=== PATIENT | female | born 1935 | race Caucasian/White ===

== ENCOUNTER 2017-11-09 11:17 | Inpatient (IN) ==
--- NOTE | 2017-11-09 11:44 | Anesthesia Evaluation PreOp ---
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: Denies Any Significant HX Other Medical History: Renal (RENAL INSUFFICIENCY), Other (Rheumatoid Arthritis) Anesthesia History: No Prior Anesthetic Complications Alcohol Use: none Drug use: none Medications and Allergies Alendronate Sodium 70 mg PO SA 06/22/15 [History] Calcium Carbonate/Vitamin D3 [Calcium 600 + D Tablet] 1 each PO DAILY 06/22/15 [ History] Hydroxychloroquine [Plaquenuil] 200 mg PO DAILY 06/22/15 [History] Methotrexate [Otrexup] 7.5 mg PO SA 06/22/15 [History] PredniSONE 5 mg PO DAILY 06/22/15 [History] Ranitidine HCl [Zantac] 150 mg PO DAILY 06/22/15 [History] Calcium/Vit B12/FA/Pyridoxine [Folic Acid-Vit B6-Vit B12 Tab] 1 each PO DAILY [History] Losartan/Hydrochlorothiazide [Hyzaar 100-25 Tablet] 1 each PO DAILY 12/27/15 [ History] Oxycodone HCl/Acetaminophen [Percocet 5-325 mg Tablet] 1 tab PO Q6H PRN [History] 3 Allergy/AdvReac Type Severity Reaction Status Date / Time No Known Allergies Allergy Verified 11/09/17 11:38 - Meds/Allergy Pre-op Review Medications Reviewed: Yes Allergies Reviewed: Yes Anesthesia Results - Labs Laboratory Tests 11/05/17 11/05/17 15:34 15:34 Hgb 12.7 Hct 39.4 Plt Count 278 Sodium 136 Potassium 4.3 BUN 32 H Creatinine 1.20 Anesthesia Exam O2 Sat Height 1.52 m Height 1.52 m Height 1.52 m Weight 54.885 kg Weight 54.885 kg BMI 24 O2 Sat by Pulse Oximetry 96 Vital Signs Temp Pulse Resp BP Pulse Ox 98.2 F 84 18 127/77 96 11/09/17 11:39 11/09/17 11:39 11/09/17 11:39 11/09/17 11:39 11/09/17 11:39 - HEENT Mallampati: II Denture Type: Upper: Partial, Lower: Partial - 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 Patient informed and consented. Risks, benefits, and alternatives discussed. Patient wishes to proceed.
--- NOTE | 2017-11-09 11:49 | History & Physical Report ---
Date of Encounter: 11/09/17 Time of Encounter: 11:49 24 Hour HP Update - Instructions Instructions: If the History and Physical is less than 30 days old and was completed prior to A.M. admission and or procedure and has NOT been updated on calendar day of procedure please complete this update prior to performing procedure. - Update Patient reports changes in Medical Condition: No Changes in examination, assessment, or condition: No Changes in Medication: No Preop tests/diagnostics Reviewed: Yes Surgery Remains Indicated: Yes Consent for Planned Operative Procedure(s) Verified: Yes
[2017-11-09] MEDS ORDERED: CeFAZolin Syr 2,000MG/20 ML 2,000 MG/20 ML SYRINGE IVPB ONE (11:55)
[2017-11-09] MEDS ORDERED: Albuterol 2.5 MG/3 ML NEBULIZER IH ONE (11:57)
[2017-11-09] MEDS ORDERED: Ringers Solution, Lactated 1,000 ML IVC SCH ×2 (12:00→16:26)
[2017-11-09] MEDS ORDERED: ROPIVACAINE HCL/PF 0.5% 30 ML VIAL ONE (12:46)
[2017-11-09] MEDS ORDERED: Dexamethasone 4 MG/ML VIAL ONE ×2 (12:47→13:50)
[2017-11-09] MEDS ORDERED: *HR* Midazolam HCl 2 MG/2 ML VIAL ONE (12:48)
[2017-11-09] MEDS ORDERED: *HR* FentaNYL (PF) 100 MCG/2 ML VIAL ONE ×2 (12:48→13:00)
[2017-11-09] MEDS ORDERED: *HR* Propofol 200 MG/20 ML VIAL IVP ONE (13:00)
[2017-11-09] MEDS ORDERED: *HR* OxyCODONE Immed Rel 5 MG TABLET PO PRN (13:05)
[2017-11-09] MEDS ORDERED: *HR* HYDROmorphone 2 MG TABLET PO PRN (13:05)
[2017-11-09] MEDS ORDERED: Ondansetron 4 MG/2 ML VIAL IVP ONE (13:05)
[2017-11-09] MEDS ORDERED: MORPHINE SUL Oral CONC 10 MG/0.5 ML ORAL.SYG SL PRN (13:05)
--- NOTE | 2017-11-09 13:20 | Anesthesia Procedures ---
Date of Encounter: 11/09/17 Time of Encounter: 13:00 Procedures: Anesthesia - Nerve Block Procedure Date: 11/09/17 Time: 13:00 Allergies/Adv Reactions: NKDA Pre-op Diagnosis: Left shoulder proximal humerus fracture Surgical Procedure: Left proximal humerus ORIF Checklist: Correct Patient Identifier, Correct procedure, History checked Correct side: Left Blood Thinner: No Monitor Applied: EKG, BP, Pulse Oximetry Supplemental Oxygen via Nasal Cannula (L/min): 2 Sedation: Versed (mg): 1 Sedation: Fentanyl (mcg): 50 Indication: Post Op Analgesia Pre-op Neuro Deficits: No Block Type: Interscalene Catheter placed: No Sterile Technique: Yes Ultrasound used: Yes Anatomy identified: Yes Visual spread of Local: Yes Neuro Stimulation: No Blood on Needle Aspiration: No Smooth Injection of Local: Yes Prep: Chlorhexadine Needle: 22 x 50 mm Stimuplex Local: Ropivacaine (0.5% ) Volume (cc): 25ml Number of Attempts: 1 Complications: None/effective block Vitals: Vital Signs Temperature 98.2 F 11/09/17 11:39 Pulse Rate 84 11/09/17 11:39 Respiratory Rate 18 11/09/17 11:39 Blood Pressure 127/77 11/09/17 11:39 O2 Sat by Pulse Oximetry 96 11/09/17 11:39 Temperature 98.2 F 11/09/17 11:39 Pulse Rate 84 11/09/17 11:39 Respiratory Rate 18 11/09/17 11:39 Blood Pressure 127/77 11/09/17 11:39 O2 Sat by Pulse Oximetry 96 11/09/17 11:39
[2017-11-09] MEDS ORDERED: EPHEDrine 50 MG/ML VIAL ONE (13:38)
[2017-11-09] MEDS ORDERED: *HR* PHENYLEPHRINE 1,000 MCG/10 ML SYRINGE IVP ONE (13:49)
[2017-11-09] MEDS ORDERED: Ondansetron 4 MG/2 ML VIAL ONE (13:50)
--- NOTE | 2017-11-09 16:04 | Orthopedic Operative Note ---
Date of procedure: 11/09/17 Pre-op diagnosis: Left four part proximal humerus fracture Post-op diagnosis: same Procedure: 1. Left reverse total shoulder arthroplasty 2. Left ORIF greater tuberosity 3. Left open biceps tenodesis Indications: This is a 82 yo F with history of rheumatoid arthritis who had a fall and sustained a displaced four part left proximal humerus fracture. Operative and non-operative treatment options were discussed with the patient, and the patient has elected for a left reverse shoulder replacement with tuberosity repair. The risks and benefits of the procedure were fully explained to the patient. These risks include, but are not limited to, the risk of infection, neurovascular injury, continued pain and stiffness of the shoulder , need for further surgery, DVT, PE, loss of limb and loss of life. The patient did understand all of these risks and wishes to proceed. Informed consent was then obtained. Operative procedure: The patient was brought back to the OR suite by the anesthesia staff. The patient was then placed supine on the operating table and all bony prominences were padded. The anesthesiologist then performed successful general anesthetic for the remainder of the case. The head, neck and airway were secured and protected by anesthesia. The bed was elevated about 30 degrees. The right upper extremity was then prepped and draped in the normal sterile orthopedic fashion and placed in the Trimano arm palomo. Preoperative antibiotics were then given prior to incision. A timeout was performed confirming the correct patient, site and side, procedure to be performed and any allergies. All were in agree and we did proceed. A standard deltopectoral approach was performed. We dissected down through the skin coagulating any bleeders were encountered. The cephalic vein was then identified and taken laterally with the deltoid. Adhesions were cleared from underneath the deltoid and a brown retractor was placed. The interval between the deltoid and pectoralis was then developed and kolbel retractor was placed. A Darrach retractor was then placed under the acromion. The biceps tendon was exposed and identified, and then released proximally into the rotator interval. Soft tissue tenodesis of the remaining biceps was then performed. The lateral border of the conjoined tendon was then identified and the fracture of the lesser tuberosity, humeral head, and greater tuberosity fragments were identified. The lesser tuberosity fragment was off of the humeral shaft, this was retracted, exposing the humeral head. The humeral head was removed using 2 darrachs. The greater tuberosity was fragmented into multiple pieces. 4 niceloop fiberwire sutures were then placed around the greater tuberosity for later repair. Any bony debris was removed from the proximal humerus. Attention was then turned to the glenoid. The humerus was subluxed posteriorly and retractors were placed on the anterior and posterior aspects of the glenoid. A 360 degree release of the subscapularis was performed, and the axillary nerve was palpated and protected throughout the case. Labral debridement was then performed. The glenoid was arthritic with bone erosions. A central guide pin was placed in the appropriate position on the glenoid. The central drill hole was made and the glenoid was then reamed in accordance with the [employer] reverse system. The patient did have soft glenoid bone due to her RA, but the baseplate was able to be screwed in place securely. The remaining peripheral drill holes were drilled and the appropriate length locking screws were placed. The glenosphere was then inserted and locked in to place with the locking screw. Attention was turned back to the humerus. The humerus was subluxed back anteriorly and the humerus was reamed and broached up to a size 3. A trial humeral stem and cup were placed. Trial reduction was then performed to make sure we could reduce the humerus. The size 3 ascend flex stem was then press fit in place, using the greater tuberosity as a guide to our humeral height. We retrialed the humeral cup and tray until we had adequate stability. We also ensured the greater tuberosity could be reduced to the stem. The final size +6 humeral cup was placed and the shoulder reduced. The niceloops around the greater tuberosity was then passed around the stem. The greater tuberosity was then held in place and tied back on to the humeral shaft. The shoulder was then taken through ROM to ensure stability of the prosthesis and tuberosity repair. The wound was then copiously irrigated, the deltopectoral interval was tagged with 2-0 surgilon, and the incision was closed with 2-0 stratafix deep and a running 3-0 stratafix subcuticular. Sterile dressing was placed, the arm was placed in a sling and the patient was taken to the PACU in stable condition. There were no complications during the case. Post op plan: Admitted post op. We will hold shoulder motion due to the patients poor bone quality, ok for hand, wrist and elbow motion. Implants: Tornier aequalis ascend flex 3b PTC Standard stem +0 centered tray, 36+6 mm flex poly Aequalis reverse threaded post baseplate, 25x25 mm 36x25 mm +4 lateralized glenosphere Anesthesia: GETA, regional Surgeon: Fred Sung Was there an assistant sales director present: No Estimated blood loss (cc): 100 Condition: stable Disposition: PACU
--- NOTE | 2017-11-09 16:05 | Anesthesia Evaluation Post Op ---
Date of Encounter: 11/09/17 Time of Encounter: 16:04 - Vital Signs Vital Signs: vss - Lungs Lungs: Clear Ascult./Percussion - Airway Airway: Non-obstructed - Mental Status Mental Status: Asleep with brisk response to light stimulation - Pain Pain Scale used: Norma (Faces) - Nausea Vomiting Nausea Vomiting: Not Present - Hydration Hydration: Ice chips - Discharge PostOp Status: Transfer Patient to floor
[2017-11-09] MEDS ORDERED: Ondansetron 4 MG/2 ML VIAL IVP PRN (16:26)
[2017-11-09] MEDS ORDERED: Sennosides 8.6 MG TABLET PO PRN (16:26)
[2017-11-09] MEDS ORDERED: Ketorolac 15 MG/ML VIAL IVP PRN (16:26)
[2017-11-09] MEDS ORDERED: *HR* HYDROcodone/Acet 5/325 mg TABLET PO PRN (16:26)
[2017-11-09] MEDS ORDERED: Temazepam 15 MG CAPSULE PO PRN (16:26)
[2017-11-09] MEDS ORDERED: MOM Conc 10 ML UD.LIQ PO PRN (16:26)
[2017-11-09] MEDS ORDERED: Acetaminophen 325 MG TABLET PO PRN (16:26)
[2017-11-09] MEDS ORDERED: Naloxone 0.4 MG/ML INJ IVP PRN (16:26)
--- NOTE | 2017-11-09 16:52 | Electrocardiograph Report ---
[place] [address] Test Date: 2017-11-05 Pat Name: Tamika Arriaga Department: 107 Room: [facility] Gender: F Family Practice Physician Assistant: AME : [id number] Requested By: Fred Sung Order Number: [id number] Reading MD: Manju Espinosa Measurements Intervals Berkley Rate: 92 P: 20 ID: [id number] QRS: -12 QRSD: 82 T: -9 QT: 334 QTc: 384 Interpretive Statements SINUS RHYTHM MODERATE VOLTAGE CRITERIA FOR LVH, CONSIDER NORMAL VARIANT Electronically Signed On 11-09-2017 16:50:23 EDT by Manju Espinosa
[2017-11-09] MEDS: CeFAZolin Premix DUPLEX 2,000 MG/50 ML BAG IVPB SCH ×2 (17:42→23:58)
[2017-11-10 06:32] LABS: Hematocrit 30.4 % (35.3-44.9)
[2017-11-10 06:36] LABS: Hemoglobin 10.2 g/dL (11.5-15.4)
--- NOTE | 2017-11-10 07:51 | Physician Discharge Referral ---
Home Health/Hosp Referral Info Transfer to: Home Health - Respiratory Orders Smoking Cessation: Smoking cessation has been advised. For more information, call the [place] Tobacco Quit Line at 0-340-KUOG-NOW. - Diet/Nutrition Diet/Nutrition Orders: Regular - Activity Activity Orders: Up ad mane - Services Needed Following services are medically necessary services: Nursing, Physical Therapy, Occupational Therapy Other Treatments: POST-OPERATIVE INSTRUCTIONS OPEN SHOULDER SURGERY Your recovery after shoulder surgery can take 6-9 months (and sometimes up to a year) to fully recover. It takes 12 weeks for the repair to fully heal, so it is very important to follow all precautions after surgery as directed. These instructions are intended to help you control swelling and pain, and to allow your shoulder and repaired tissues to heal. These instructions are a general guideline, because no patient or procedure is the same. If needed, your surgeon will give you further specific instructions. SLING You are required to wear your sling at all times (including sleeping) until your follow up appointment. This is necessary to protect your repair. You may remove it to work on your hand, wrist, and elbow exercises, for getting dressed , and for hygiene. Otherwise, it should remain on at all times. ICE It is recommended to ice your shoulder for 20 minutes per hour using an ice pack, Cryo Cuff if provided, or a bag of frozen peas. Ice can be especially helpful for the first several days after surgery. It can then be used as needed for pain and swelling. PAIN BLOCK/PAIN CATHETER The pain block/catheter is intended for pain relief and can last for up to 48 hours. During this time, you will not experience pain and will not be able to move your hand and fingers. It will give you the sensation of your arm being paralyzed. THIS IS TEMPORARY UNTIL THE BLOCK WEARS OFF. It is recommended that you start your pain medication even though you are getting pain relief from the block. It is more difficult to control the pain once the block wears off, then to keep a constant level of the pain medication in your system. For further questions regarding the pain catheter or block, please refer to the pain pump handout given to you from surgery or contact the anesthesia department as directed in the handout. MEDICATIONS You should resume all of your normal medications after shoulder surgery. If you are on blood thinners, these should be discussed with our team to decide on a date to resume them (typically the day after surgery). You will be given prescriptions for pain medications: o Fill the pain medications immediately and begin taking the medications before your nerve block wears off. You are encouraged to take the pain medications as directed on the prescription, and on a regular schedule for the first 3-4 days after surgery. o Do not let the pain get "ahead" of the pain medications since then it will be very difficult for you to get adequate pain control. o Even with the nerve block from surgery, it is recommended that you start on the pain medications after surgery to avoid the block wearing off without having pain medications in your system. o As the pain decreases, you may decrease the pain medication and switch to extra strength Tylenol if needed. o Avoid driving and consuming alcohol while taking pain medication. o Common side effects of pain medication are nausea, drowsiness, and constipation. Consider taking medication with food, and also consider using an [id number] stool softener. DRESSING You may shower and get your incision wet 5 days after surgery, as long as there is no drainage coming from the incision. If the dressing is leaking, remove it and apply a clean, dry gauze to your shoulder. Avoid letting the shower stream hit the incisions directly until the sutures are removed. DO NOT scrub incisions or soak under water (bathtub, swimming pool or hot tub etc.) Pat the shoulder dry and then re-apply the dressing. If you have drainage more than 5 days after surgery, please contact our office for advice. SLEEPING You may find it more comfortable to sleep in a semi-reclined position (ie. recliner type chair or propped up on pillows) following shoulder surgery. You may return to sleeping in your bed whenever it feels comfortable to do so. EXERCISES You may come out of your sling 3-4 times/day to move your elbow, wrist, and hand and fingers. Remember no active motion of the shoulder (moving the arm without assistance from someone else) until follow up. We will make specific recommendations about physical therapy will be determined at your first postoperative appointment. FOLLOW UP APPOINTMENTS Your first follow up appointment is generally 10-14 days after surgery. Please refer to your preoperative packet for the date and time or contact the office after surgery to confirm this appointment. o Please wait until after first follow up appointment for physical therapy instructions Wound care, pain management, and a review of your surgical procedure will be discussed at your first post-operative appointment Additional appointments are scheduled according to the type of surgery that you had and how you are progressing. PRECAUTIONS After anesthesia, rest for 24 hours. General anesthesia may cause a sore throat, jaw discomfort or muscle aches. These symptoms can last for one or two days. Do not drive, drink alcoholic beverages or make any important or legal decisions during this time. Avoid placing arm behind back (tucking in shirt, putting on belt), and do not lean on affected arm or use arm to push up from a seated or laying position. A good general rule is to keep your arm where you can see it. Keep your first few meals after surgery light and drink plenty of fluids, and some people are nauseas after surgery. Smoking increases your risk of infection and can delay healing times. If you smoke, you are encouraged to quit, cut back or at least quit smoking during the post-operative period. Pain medications are important for the first few days after surgery to treat postoperative pain. Addiction, tolerance, and side effects are a big concern. Decrease the pain medications as soon as you can. This is typically after the first few days. Most patients require narcotic pain medications only for the first few weeks after surgery (even large procedures). Prolonged use increases the risk of problems with these medications. NOTIFY THE OFFICE IMMEDIATELY, IF YOU DEVELOP ANY OF THE FOLLOWING: Increased redness or swelling over the incision area Incision area is warm or hot to touch Incision has foul smelling drainage Relentless pain, nausea, vomiting, bleeding or drainage Severe calf pain or chest pain You develop a fever greater than 101.4 more than 48 hours after surgery If you having an emergency that requires immediate attention go to the nearest emergency room or call 911. Please contact the office with any other questions or concerns that you may have regarding your surgery. - Transfer Medications Home Medications: Alendronate Sodium 70 mg PO SA 06/22/15 [History] Calcium Carbonate/Vitamin D3 [Calcium 600 + D Tablet] 1 each PO DAILY 06/22/15 [ History] Hydroxychloroquine [Plaquenuil] 200 mg PO DAILY 06/22/15 [History] Methotrexate [Otrexup] 7.5 mg PO SA 06/22/15 [History] PredniSONE 5 mg PO DAILY 06/22/15 [History] Ranitidine HCl [Zantac] 150 mg PO DAILY 06/22/15 [History] Calcium/Vit B12/FA/Pyridoxine [Folic Acid-Vit B6-Vit B12 Tab] 1 each PO DAILY [History] Losartan/Hydrochlorothiazide [Hyzaar 100-25 Tablet] 1 each PO DAILY 12/27/15 [ History] Oxycodone HCl/Acetaminophen [Percocet 5-325 mg Tablet] 1 tab PO Q6H PRN [History] Allergies/Adverse Reactions: 3 Allergy/AdvReac Type Severity Reaction Status Date / Time No Known Allergies Allergy Verified 11/09/17 11:38 Certification: Further, I certify that my clinical findings support that this patient is homebound (i.e. absences from home require considerable and taxing effort and are for medical reasons or mandaeism services or infrequently or short duration when for other reasons) because: Homebound Reason: Patient requires assistance of a person or device to safely leave home Attestation: My signature below is to certify that this patient is under my care and that I, or nurse practitioner, or a physician's visitor services assistant working with me, has a face-to -face encounter with this patient.
--- NOTE | 2017-11-10 08:37 | Orthopedics Progress Note ---
Date of Encounter: 11/10/17 Time of Encounter: 08:08 Subjective Interval history: Doing ok first day post op. Block has worn off, left shoulder pain is present. Denies N/T. No f/c/ns. AFVSS Hgb 10.2 GEN: NAD, AAOx3 LUE: Dress c/d/i DNVI ax/m/r/u +AIN/PIN/U POD#1 s/p L shoulder reverse for fracture -PT for hand, wrist and elbow motion only - no shoulder motion -PO pain control -D/c when passes PT and pain is controlled Objective Vital signs: Vital Signs Temp Pulse Resp BP Pulse Ox 11/10/17 06:56 97.9 F 77 16 115/66 96 11/10/17 03:46 97.4 F L 85 14 127/67 97 11/09/17 23:02 97.5 F L 83 16 96/60 92 11/09/17 18:43 97.6 F 100 16 104/67 96 11/09/17 17:30 97.5 F L 93 15 100/60 95 11/09/17 17:00 97.5 F L 105 16 95/63 98 11/09/17 16:28 97.5 F L 90 16 134/79 98 11/09/17 16:12 97.1 F L 89 16 125/75 99 11/09/17 16:02 87 16 142/71 99 11/09/17 15:52 86 16 133/61 100 11/09/17 15:42 97.6 F 84 16 125/64 100 11/09/17 13:10 82 18 109/59 98 11/09/17 12:56 81 18 125/84 98 11/09/17 11:39 98.2 F 84 18 127/77 96 Intake and Output 11/09/17 11/10/17 11/10/17 23:59 07:59 15:59 Intake Total 200 / 200 150 / 150 Output Total 600 / 600 300 / 300 Balance -400 / -400 -150 / -150 Intake: IV Fluids 50 / 50 Ancef Premix DUPLEX 2,000 mg In 50 / 50 50 ml @ 100 mls/hr IVPB Q8HR SARAH Rx#:[id number] Oral 150 / 150 150 / 150 Output: Urine 600 / 600 300 / 300 Other: # Voids 1 Weight 58.2 kg Patient Weight 11/10/17 23:59 Weight 58.2 kg - Labs CBC & BMP: 11/10/17 06:05 Labs: Abnormal lab results Hgb 10.2 g/dL (11.5-15.4) L D 11/10/17 06:05 Hct 30.4 % (35.3-44.9) L 11/10/17 06:05 - VTE Documentation of Mechanical Device: Venous foot pump, device Consult Discharge Plan - Plan Additional Instructions: POST-OPERATIVE INSTRUCTIONS OPEN SHOULDER SURGERY Your recovery after shoulder surgery can take 6-9 months (and sometimes up to a year) to fully recover. It takes 12 weeks for the repair to fully heal, so it is very important to follow all precautions after surgery as directed. These instructions are intended to help you control swelling and pain, and to allow your shoulder and repaired tissues to heal. These instructions are a general guideline, because no patient or procedure is the same. If needed, your surgeon will give you further specific instructions. SLING You are required to wear your sling at all times (including sleeping) until your follow up appointment. This is necessary to protect your repair. You may remove it to work on your hand, wrist, and elbow exercises, for getting dressed , and for hygiene. Otherwise, it should remain on at all times. ICE It is recommended to ice your shoulder for 20 minutes per hour using an ice pack, Cryo Cuff if provided, or a bag of frozen peas. Ice can be especially helpful for the first several days after surgery. It can then be used as needed for pain and swelling. PAIN BLOCK/PAIN CATHETER The pain block/catheter is intended for pain relief and can last for up to 48 hours. During this time, you will not experience pain and will not be able to move your hand and fingers. It will give you the sensation of your arm being paralyzed. THIS IS TEMPORARY UNTIL THE BLOCK WEARS OFF. It is recommended that you start your pain medication even though you are getting pain relief from the block. It is more difficult to control the pain once the block wears off, then to keep a constant level of the pain medication in your system. For further questions regarding the pain catheter or block, please refer to the pain pump handout given to you from surgery or contact the anesthesia department as directed in the handout. MEDICATIONS You should resume all of your normal medications after shoulder surgery. If you are on blood thinners, these should be discussed with our team to decide on a date to resume them (typically the day after surgery). You will be given prescriptions for pain medications: o Fill the pain medications immediately and begin taking the medications before your nerve block wears off. You are encouraged to take the pain medications as directed on the prescription, and on a regular schedule for the first 3-4 days after surgery. o Do not let the pain get "ahead" of the pain medications since then it will be very difficult for you to get adequate pain control. o Even with the nerve block from surgery, it is recommended that you start on the pain medications after surgery to avoid the block wearing off without having pain medications in your system. o As the pain decreases, you may decrease the pain medication and switch to extra strength Tylenol if needed. o Avoid driving and consuming alcohol while taking pain medication. o Common side effects of pain medication are nausea, drowsiness, and constipation. Consider taking medication with food, and also consider using an [id number] stool softener. DRESSING You may shower and get your incision wet 5 days after surgery, as long as there is no drainage coming from the incision. If the dressing is leaking, remove it and apply a clean, dry gauze to your shoulder. Avoid letting the shower stream hit the incisions directly until the sutures are removed. DO NOT scrub incisions or soak under water (bathtub, swimming pool or hot tub etc.) Pat the shoulder dry and then re-apply the dressing. If you have drainage more than 5 days after surgery, please contact our office for advice. SLEEPING You may find it more comfortable to sleep in a semi-reclined position (ie. recliner type chair or propped up on pillows) following shoulder surgery. You may return to sleeping in your bed whenever it feels comfortable to do so. EXERCISES You may come out of your sling 3-4 times/day to move your elbow, wrist, and hand and fingers. Remember no active motion of the shoulder (moving the arm without assistance from someone else) until follow up. We will make specific recommendations about physical therapy will be determined at your first postoperative appointment. FOLLOW UP APPOINTMENTS Your first follow up appointment is generally 10-14 days after surgery. Please refer to your preoperative packet for the date and time or contact the office after surgery to confirm this appointment. o Please wait until after first follow up appointment for physical therapy instructions Wound care, pain management, and a review of your surgical procedure will be discussed at your first post-operative appointment Additional appointments are scheduled according to the type of surgery that you had and how you are progressing. PRECAUTIONS After anesthesia, rest for 24 hours. General anesthesia may cause a sore throat, jaw discomfort or muscle aches. These symptoms can last for one or two days. Do not drive, drink alcoholic beverages or make any important or legal decisions during this time. Avoid placing arm behind back (tucking in shirt, putting on belt), and do not lean on affected arm or use arm to push up from a seated or laying position. A good general rule is to keep your arm where you can see it. Keep your first few meals after surgery light and drink plenty of fluids, and some people are nauseas after surgery. Smoking increases your risk of infection and can delay healing times. If you smoke, you are encouraged to quit, cut back or at least quit smoking during the post-operative period. Pain medications are important for the first few days after surgery to treat postoperative pain. Addiction, tolerance, and side effects are a big concern. Decrease the pain medications as soon as you can. This is typically after the first few days. Most patients require narcotic pain medications only for the first few weeks after surgery (even large procedures). Prolonged use increases the risk of problems with these medications. NOTIFY THE OFFICE IMMEDIATELY, IF YOU DEVELOP ANY OF THE FOLLOWING: Increased redness or swelling over the incision area Incision area is warm or hot to touch Incision has foul smelling drainage Relentless pain, nausea, vomiting, bleeding or drainage Severe calf pain or chest pain You develop a fever greater than 101.4 more than 48 hours after surgery If you having an emergency that requires immediate attention go to the nearest emergency room or call 911. Please contact the office with any other questions or concerns that you may have regarding your surgery. Referrals: Obie Diaz MD [Primary Care Provider] -
[2017-11-10] MEDS ORDERED: predniSONE 5 MG TABLET PO SCH (09:00)
[2017-11-10] MEDS ORDERED: NON-FORMULARY MEDICATION 1 EACH EACH (Calcium Carbonate/Vitamin D3 [Calcium 600 + D Tablet PO SCH (09:00)
[2017-11-10] MEDS ORDERED: Losartan/HCTZ 50-12.5 TABLET PO SCH (09:00)
[2017-11-10] MEDS ORDERED: Multivit/Ca/Min/Fe/FA 1 TAB TABLET PO SCH (09:00)
[2017-11-10] MEDS ORDERED: Famotidine 20 MG TABLET PO SCH (09:00)
[2017-11-10] MEDS ORDERED: Cholecalciferol (D-3) 1,000 UNIT TABLET PO SCH (09:00)
--- NOTE | 2017-11-10 11:25 | Discharge Summary ---
Orders not resulted at time of discharge: Pending orders 11/11/17 04:00 Hemoglobin and Hematocrit [HEME] AM 0400 Date of Encounter: 11/10/17 Time of Encounter: 11:23 - Discharge Diagnosis (1) Humerus surgical neck fracture Priority: Primary Status: Acute Qualifiers: Encounter type: initial encounter Fracture type: closed Fracture morphology: unspecified fracture morphology Fracture alignment: displaced Laterality: left Qualified Code(s): S42.212A - Unspecified displaced fracture of surgical neck of left humerus, initial encounter for closed fracture - Hospital Course Hospital course: Ms. Arriaga is a 82 year old female admitted overnight for pain control following a reverse total shoulder arthroplasty for a four part proximal humerus fracture. She tolerated surgery with no issues. She was able to work with physical therapy for hand, wrist and elbow motion and then was discharged POD#1 after being cleared by therapy and having her pain controlled. - Time Spent with Patient Total time spent providing and/or coordinating discharge services: - Discharge Medications Home Medications: Alendronate Sodium 70 mg PO SA 06/22/15 [History] Calcium Carbonate/Vitamin D3 [Calcium 600 + D Tablet] 1 each PO DAILY 06/22/15 [ History] Hydroxychloroquine [Plaquenuil] 200 mg PO DAILY 06/22/15 [History] Methotrexate [Otrexup] 7.5 mg PO SA 06/22/15 [History] PredniSONE 5 mg PO DAILY 06/22/15 [History] Ranitidine HCl [Zantac] 150 mg PO DAILY 06/22/15 [History] Calcium/Vit B12/FA/Pyridoxine [Folic Acid-Vit B6-Vit B12 Tab] 1 each PO DAILY [History] Losartan/Hydrochlorothiazide [Hyzaar 100-25 Tablet] 1 each PO DAILY 12/27/15 [ History] Oxycodone HCl/Acetaminophen [Percocet 5-325 mg Tablet] 1 tab PO Q6H PRN [History] Allergies/Adverse Reactions: 3 Allergy/AdvReac Type Severity Reaction Status Date / Time No Known Allergies Allergy Verified 11/09/17 11:38 Date of admission: 11/09/17 16:27 Primary care physician: Obie Diaz MD Consults: 11/09/17 16:26 Consult to Occupational Therapy [CONS] Routine Comment: post shoulder surgery Reason for Consult: post shoulder surgery Does patient have active BEDREST order?: No Is patient medically & hemodynamically stable?: Yes Consult to Orthopedic Navigator [CONS] [CONS] Routine Consult to Physical Therapy [CONS] Routine Comment: post shoulder surgery Reason for Consult: post shoulder surgery Does patient have active BEDREST order?: No Is patient medically & hemodynamically stable?: Yes RT Post Op Consult [CONS] Routine 11/09/17 16:32 Consult to [employer] [CONS] Routine Reason for SW Consult: DISCHARGE PLANNING - VTE Documentation of Mechanical Device: Venous foot pump, device Labs on day of discharge: Labs from last 24 hours 11/10/17 06:05 Hgb 10.2 L D Hct 30.4 L - Impressions ITS Impressions Shoulder X-Ray 11/09/17 15:33 IMPRESSION: 1. Left shoulder arthroplasty. Hardware is intact. Small fracture fragments adjacent to the proximal humerus -- likely residual fragment from initial fracture. 2. Pulmonary findings in the left mid lung are stable. D/ / 11/09/2017 16:06:42 Casey Massey MD / [facility] Interpreting Provider: Casey Massey MD Shoulder X-Ray 11/10/17 07:48 IMPRESSION: 1. Unchanged expected findings of left reverse shoulder arthroplasty with no evident complication. Unchanged adjacent bony fragments along the superolateral humeral stem may be related to the initial fracture or surgery. 2. 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 3. Bony demineralization. 4. Left basilar airspace opacity, most likely atelectasis. D/ / Mack Larsen MD / Mack Larsen MD Interpreting Provider: Mack Larsen MD - Patient Status Disposition: Home Health Service Condition: Fair Functional capacity at discharge: independent ambulation Overall status at discharge: patient is progressing back to baseline - Discharge Instructions Follow Up With: Obie Diaz MD [Primary Care Provider] - Additional Instructions: POST-OPERATIVE INSTRUCTIONS OPEN SHOULDER SURGERY Your recovery after shoulder surgery can take 6-9 months (and sometimes up to a year) to fully recover. It takes 12 weeks for the repair to fully heal, so it is very important to follow all precautions after surgery as directed. These instructions are intended to help you control swelling and pain, and to allow your shoulder and repaired tissues to heal. These instructions are a general guideline, because no patient or procedure is the same. If needed, your surgeon will give you further specific instructions. SLING You are required to wear your sling at all times (including sleeping) until your follow up appointment. This is necessary to protect your repair. You may remove it to work on your hand, wrist, and elbow exercises, for getting dressed , and for hygiene. Otherwise, it should remain on at all times. ICE It is recommended to ice your shoulder for 20 minutes per hour using an ice pack, Cryo Cuff if provided, or a bag of frozen peas. Ice can be especially helpful for the first several days after surgery. It can then be used as needed for pain and swelling. PAIN BLOCK/PAIN CATHETER The pain block/catheter is intended for pain relief and can last for up to 48 hours. During this time, you will not experience pain and will not be able to move your hand and fingers. It will give you the sensation of your arm being paralyzed. THIS IS TEMPORARY UNTIL THE BLOCK WEARS OFF. It is recommended that you start your pain medication even though you are getting pain relief from the block. It is more difficult to control the pain once the block wears off, then to keep a constant level of the pain medication in your system. For further questions regarding the pain catheter or block, please refer to the pain pump handout given to you from surgery or contact the anesthesia department as directed in the handout. MEDICATIONS You should resume all of your normal medications after shoulder surgery. If you are on blood thinners, these should be discussed with our team to decide on a date to resume them (typically the day after surgery). You will be given prescriptions for pain medications: o Fill the pain medications immediately and begin taking the medications before your nerve block wears off. You are encouraged to take the pain medications as directed on the prescription, and on a regular schedule for the first 3-4 days after surgery. o Do not let the pain get "ahead" of the pain medications since then it will be very difficult for you to get adequate pain control. o Even with the nerve block from surgery, it is recommended that you start on the pain medications after surgery to avoid the block wearing off without having pain medications in your system. o As the pain decreases, you may decrease the pain medication and switch to extra strength Tylenol if needed. o Avoid driving and consuming alcohol while taking pain medication. o Common side effects of pain medication are nausea, drowsiness, and constipation. Consider taking medication with food, and also consider using an [id number] stool softener. DRESSING You may shower and get your incision wet 5 days after surgery, as long as there is no drainage coming from the incision. If the dressing is leaking, remove it and apply a clean, dry gauze to your shoulder. Avoid letting the shower stream hit the incisions directly until the sutures are removed. DO NOT scrub incisions or soak under water (bathtub, swimming pool or hot tub etc.) Pat the shoulder dry and then re-apply the dressing. If you have drainage more than 5 days after surgery, please contact our office for advice. SLEEPING You may find it more comfortable to sleep in a semi-reclined position (ie. recliner type chair or propped up on pillows) following shoulder surgery. You may return to sleeping in your bed whenever it feels comfortable to do so. EXERCISES You may come out of your sling 3-4 times/day to move your elbow, wrist, and hand and fingers. Remember no active motion of the shoulder (moving the arm without assistance from someone else) until follow up. We will make specific recommendations about physical therapy will be determined at your first postoperative appointment. FOLLOW UP APPOINTMENTS Your first follow up appointment is generally 10-14 days after surgery. Please refer to your preoperative packet for the date and time or contact the office after surgery to confirm this appointment. o Please wait until after first follow up appointment for physical therapy instructions Wound care, pain management, and a review of your surgical procedure will be discussed at your first post-operative appointment Additional appointments are scheduled according to the type of surgery that you had and how you are progressing. PRECAUTIONS After anesthesia, rest for 24 hours. General anesthesia may cause a sore throat, jaw discomfort or muscle aches. These symptoms can last for one or two days. Do not drive, drink alcoholic beverages or make any important or legal decisions during this time. Avoid placing arm behind back (tucking in shirt, putting on belt), and do not lean on affected arm or use arm to push up from a seated or laying position. A good general rule is to keep your arm where you can see it. Keep your first few meals after surgery light and drink plenty of fluids, and some people are nauseas after surgery. Smoking increases your risk of infection and can delay healing times. If you smoke, you are encouraged to quit, cut back or at least quit smoking during the post-operative period. Pain medications are important for the first few days after surgery to treat postoperative pain. Addiction, tolerance, and side effects are a big concern. Decrease the pain medications as soon as you can. This is typically after the first few days. Most patients require narcotic pain medications only for the first few weeks after surgery (even large procedures). Prolonged use increases the risk of problems with these medications. NOTIFY THE OFFICE IMMEDIATELY, IF YOU DEVELOP ANY OF THE FOLLOWING: Increased redness or swelling over the incision area Incision area is warm or hot to touch Incision has foul smelling drainage Relentless pain, nausea, vomiting, bleeding or drainage Severe calf pain or chest pain You develop a fever greater than 101.4 more than 48 hours after surgery If you having an emergency that requires immediate attention go to the nearest emergency room or call 911. Please contact the office with any other questions or concerns that you may have regarding your surgery. - Diet and Activity Activity: as per physical therapy Diet: advance to your usual diet
[2017-11-10 12:32] VITALS: BP 114/69
[2017-11-10] MEDS ORDERED: Aspirin Enteric Coated 325 MG Tablet PO SCH (15:38)
[2017-11-13] MEDS ORDERED: *HR* Methotrexate 2.5 MG TABLET PO SCH (15:30)
[2017-11-13] MEDS ORDERED: NON-FORMULARY MEDICATION 1 EACH EACH (Alendronate Sodium [Alendronate Sodium] 70 MG) PO SCH (15:41)
== END 2017-11-10 13:41 | disposition home health service (06) | DRG 483 ==
LOC: SAMDAY 11:17 → 3NENU 16:27
PROVIDERS: ADMIT Orthopaedic Surgery Sports Medicine; ATTEND Orthopaedic Surgery Sports Medicine

== ENCOUNTER 2017-11-18 14:59 | Inpatient (IN) ==
[2017-11-18] MEDS ORDERED: Naloxone 0.4 MG/ML INJ IVP PRN (17:06)
[2017-11-18] MEDS: *HR* OxyCODONE Immed Rel 5 MG TABLET PO PRN (17:21)
--- NOTE | 2017-11-18 18:00 | Internal Med History&Physical ---
Date of Encounter: 11/18/17 Time of Encounter: 17:59 Assessment and Plan (1) Closed left femoral fracture Current visit: Yes Status: Acute Patient presenting with closed left femoral fracture of the neck. We will consult orthopedics for management. She had recently undergone left shoulder arthroplasty. Tolerated surgery well. At this time I do not see any need for further workup as she seems to be in her usual health. Will get EKG and chest x -ray for preop evaluation. Patient at intermediate risk for complications from surgery due to her age and rheumatoid arthritis. Qualifiers: Encounter type: initial encounter Femur location: neck Qualified Code(s) : S72.002A - Fracture of unspecified part of neck of left femur, initial encounter for closed fracture (2) Rheumatoid arthritis Current visit: Yes Status: Chronic Patient takes prednisone, plaquenil and methotrexate. We will continue these medications. Qualifiers: Rheumatoid arthritis location: multiple sites Rheumatoid factor presence: unspecified presence Qualified Code(s): M06.9 - Rheumatoid arthritis, unspecified (3) Essential hypertension Current visit: Yes Status: Chronic Blood pressure was elevated when she came in likely due to pain. It has improved since then. Will continue home medications and monitor blood pressure. (4) DVT prophylaxis Current visit: Yes Status: Acute With subcutaneous heparin Internal Medicine - H&P: HPI Chief complaint: Left hip pain Admitted From: Emergency Dept Plans for Post Hospital Care: [facility] History of present illness: Ms. Arriaga is a 82 year old female patient with a history of rheumatoid arthritis who was leaving her home for a follow-up appointment with orthopedics follow-up after recent left shoulder arthroplasty for a pop in her leg and was brought into the ER for evaluation. She describes intense pain in her left hip region. She denies any fall. She denies any shortness of breath cough or chest pain. She had developed pneumonia earlier this year and has recovered from it. She denies any orthopnea, palpitations or lightheadedness. No pedal edema. Presently her pain in the leg is well controlled after she received pain medications. Past Med Surg Social Fam HX - Past Medical History Attestation: Yes The following information was validated with the patient. Source: patient Medical history: hypertension, osteoporosis, RA Psychiatric history: no psych history - Past Surgical History Surgical History: , hysterectomy - Social History Smoking Status: Never smoker Smokeless Tobacco Status: No Alcohol use: none Drug use: none - Family History Mother Hx Family Cardiac Disorders: Yes (Hypertension) Hx Family Endocrine Disorder: Yes Internal Medicine - H&P: Meds Alendronate Sodium 70 mg PO SA 06/22/15 [History] Calcium Carbonate/Vitamin D3 [Calcium 600 + D Tablet] 1 each PO DAILY 06/22/15 [ History] Hydroxychloroquine [Plaquenuil] 200 mg PO DAILY 06/22/15 [History] Methotrexate [Otrexup] 7.5 mg PO SA 06/22/15 [History] PredniSONE 5 mg PO DAILY 06/22/15 [History] Ranitidine HCl [Zantac] 150 mg PO DAILY 06/22/15 [History] Calcium/Vit B12/FA/Pyridoxine [Folic Acid-Vit B6-Vit B12 Tab] 1 each PO DAILY [History] Losartan/Hydrochlorothiazide [Hyzaar 100-25 Tablet] 1 each PO DAILY 12/27/15 [ History] Oxycodone HCl/Acetaminophen [Percocet 5-325 mg Tablet] 1 tab PO Q6H PRN [History] 3 Allergy/AdvReac Type Severity Reaction Status Date / Time No Known Allergies Allergy Verified 11/09/17 11:38 All Systems PM: A 10-system review of systems was performed and is negative for pertinent findings except as documented above in the HPI. - Constitutional Constitutional: no chills, no fever(s), no night sweats - EENT Eyes: no change in vision, no discharge, no pain, no photophobia Ears: no ear discharge, no ear pain, no tinnitus Nose, mouth and throat: no dysphagia, no nasal discharge, no neck pain, no sore throat - Cardiovascular Cardiovascular ROS IM: no chest pain, no diaphoresis, no dyspnea, no lightheadedness, no palpitations, no syncope - Respiratory Respiratory: no cough, no dyspnea, no wheezing, no excessive phlegm production - Gastrointestinal Gastrointestinal: no abdominal pain, no diarrhea, no hematemesis, no hematochezia, no melena, no nausea, no vomiting - Genitourinary Genitourinary: no change in urinary stream, no dysuria, no flank pain, no hematuria - Musculoskeletal Musculoskeletal ROS IM: other (Left hip pain), no numbness, no tingling - Integumentary Integumentary IM: no rash, no unusual bruising - Neurological Neurological ROS: no confusion, no convulsions, no focal weakness, no numbness, no tingling, no tremor(s) - Hematologic/Lymphatic Hematologic/Lymphatic: no easy bruising - Constitutional Vitals: Temp Pulse Resp BP Pulse Ox 98.1 F 62 16 142/79 100 11/18/17 16:39 11/18/17 16:39 11/18/17 16:39 11/18/17 16:39 11/18/17 16:39 General appearance: Present: cooperative, mild distress, A&O X 3, answers questions appropriately - Neck Neck exam general surgery: Present: supple, trachea midline. Absent: lymphadenopathy - Respiratory Respiratory exam: Present: CTAB. Absent: accessory muscle use, rales, rhonchi, wheezes - Cardiovascular Cardiovascular exam: Present: RRR, +S1, +S2. Absent: diastolic murmur, gallop, rubs, systolic murmur - GI/Abdominal GI/Abdominal exam: Present: normal bowel sounds, soft, no peritoneal signs. Absent: distended, tenderness - Extremities Exam Extremities exam: Present: tenderness, warm, radial pulses palpable and symmetrical. Absent: calf tenderness, cyanotic, pedal edema Additional comments: Left upper extremity in brace and sling. Left lower extremity tender at the left hip with decreased range of motion - Neurological Exam Neurological exam: Present: alert, CN II-XII intact, oriented X3, no focal deficits. Absent: facial droop, speech deficit - Skin Skin exam: Present: dry, intact Internal Med - H&P Results - Labs Labs: WBC 18.6, sodium 133, hemoglobin 10.9 - Impressions X-ray of the left hip shows acute left femoral neck fracture
[2017-11-18] MEDS ORDERED: Ringers Solution, Lactated 1,000 ML IVC SCH (19:00)
--- NOTE | 2017-11-18 20:02 | Anesthesia Evaluation PreOp ---
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: Denies Any Significant HX, Other (Rhematoid arthritis, chronic steroid use) Other Medical History: Renal (Renal insufficiency) Anesthesia History: No Prior Anesthetic Complications, Past Anesthesia (Multiple , Reverse total shoulder 11/09) Alcohol Use: none Drug use: none Medications and Allergies Alendronate Sodium 70 mg PO SA 06/22/15 [History] Calcium Carbonate/Vitamin D3 [Calcium 600 + D Tablet] 1 each PO DAILY 06/22/15 [ History] Hydroxychloroquine [Plaquenuil] 200 mg PO DAILY 06/22/15 [History] Methotrexate [Otrexup] 7.5 mg PO SA 06/22/15 [History] PredniSONE 5 mg PO DAILY 06/22/15 [History] Ranitidine HCl [Zantac] 150 mg PO DAILY 06/22/15 [History] Calcium/Vit B12/FA/Pyridoxine [Folic Acid-Vit B6-Vit B12 Tab] 1 each PO DAILY [History] Losartan/Hydrochlorothiazide [Hyzaar 100-25 Tablet] 1 each PO DAILY 12/27/15 [ History] Oxycodone HCl/Acetaminophen [Percocet 5-325 mg Tablet] 1 tab PO Q6H PRN [History] 3 Allergy/AdvReac Type Severity Reaction Status Date / Time No Known Allergies Allergy Verified 11/09/17 11:38 - Meds/Allergy Pre-op Review Medications Reviewed: Yes Allergies Reviewed: Yes Anesthesia Results - Labs 11/18/17 20:09 Laboratory Last Values WBC 18.6 K/mcL (4.3-11.1) H 11/18/17 14:15 RBC 3.16 M/mcL (3.82-4.97) L 11/18/17 14:15 Hgb 10.9 g/dL (11.5-15.4) L 11/18/17 14:15 Hct 33.3 % (35.3-44.9) L 11/18/17 14:15 MCV 105.4 fL (83.0-100.0) H 11/18/17 14:15 MCH 34.5 pg (28.0-33.3) H 11/18/17 14:15 MCHC 32.7 g/dL (31.6-35.5) 11/18/17 14:15 RDW 14.5 % (11.5-14.5) 11/18/17 14:15 Plt Count 393 K/mcL (140-400) 11/18/17 14:15 MPV 8.9 fL (9.4-12.4) L 11/18/17 14:15 Immature Gran % 4.7 % (0-4) H 11/18/17 14:15 Seg Neutrophils % 83.0 % 11/18/17 14:15 Lymphocytes % 4.8 % 11/18/17 14:15 Monocytes % 7.1 % 11/18/17 14:15 Eosinophils % 0.2 % 11/18/17 14:15 Basophils % 0.2 % 11/18/17 14:15 Neutrophils # 15.4 K/mcL (1.6-8.9) H 11/18/17 14:15 Lymphocytes # 0.9 K/mcL (0.6-4.6) 11/18/17 14:15 Monocytes # 1.3 K/mcL (0.0-1.3) 11/18/17 14:15 Eosinophils # 0.0 K/mcL (0.0-0.6) 11/18/17 14:15 Basophils # 0.0 K/mcL (0.0-0.2) 11/18/17 14:15 Sodium 133 mEq/L (136-145) L 11/18/17 14:15 Potassium 3.8 mEq/L (3.5-5.1) 11/18/17 14:15 Chloride 99 mEq/L (98-107) 11/18/17 14:15 Carbon Dioxide 25 mEq/L (23-29) 11/18/17 14:15 BUN 21 mg/dL (8-23) 11/18/17 14:15 Creatinine 0.98 mg/dL (0.60-1.20) 11/18/17 14:15 Est GFR ( Amer) > 60 (> 60) 11/18/17 14:15 Est GFR (Non-Af Amer) 54 (> 60) L 11/18/17 14:15 BUN/Creatinine Ratio 21 (6-26) 11/18/17 14:15 Glucose 124 mg/dL (70-105) H 11/18/17 14:15 Calculated Osmolality 280 (280-300) 11/18/17 14:15 Calcium 9.3 mg/dL (8.6-10.3) 11/18/17 14:15 - Imaging EKG: report reviewed (SINUS RHYTHM, MODERATE VOLTAGE CRITERIA FOR LVH, CONSIDER NORMAL VARIANT) Chest x-ray: report reviewed (1. No acute process. 2. Chronic scarring and fibrotic changes primarily at the lung bases.) Anesthesia Exam Vital Signs/O2 Sat/Glucose, Most Recent Temp Pulse Resp BP Pulse Ox 98.5 F 77 18 125/66 98 11/18/17 18:30 11/18/17 18:30 11/18/17 18:30 11/18/17 18:30 11/18/17 18:30 Height: 62 in Weight: 55 kg BMI 22 NPO (# of Hours): NPO - Clears until 5 am - HEENT Mallampati: II Denture Type: Upper: Partial, Lower: Partial - Cardiac Rhythm: Regular - Pulmonary Breath Sounds: bilateral Clear Anesthesia Assess/Plan ASA Score: 4 Modified Christian Scale for Level of Consciousness: Cooperative, oriented, and tranquil Anesthetic Plan: General, Regional (SAB) Monitoring Plan: Standard Monitors Recovery Plan: PACU Anes Supervising Prov Stmt: I have participated in the evaluation of this patient. Risks, benefits, and alternative options for anesthesia discussed: GA vs SAB. Up to the patient and the anesthesia team performing the procedure. Patient wishes to proceed regardless. Patient consented for GA.
[2017-11-18] MEDS: *HR* HYDROcodone/Acet 5/325 mg TABLET PO PRN (21:44)
[2017-11-19] MEDS: *HR* OxyCODONE Immed Rel 5 MG TABLET PO PRN ×3 (01:53→14:32)
[2017-11-19] MEDS: *HR* Heparin 5,000 UNIT/ML VIAL SQ SCH ×2 (04:20→21:00)
[2017-11-19 05:51] LABS: Basophils # 0.1 K/mcL (0.0-0.2); Basophils % 0.4 %; Eosinophils # 0.2 K/mcL (0.0-0.6); Hematocrit 31.7 % (35.3-44.9); Hemoglobin 10.4 g/dL (11.5-15.4); Immature Granulocytes % 3.7 % (0-4); Lymphocytes # 2.3 K/mcL (0.6-4.6); Mean Corpuscular HGB Conc 32.8 g/dL (31.6-35.5); Mean Corpuscular Hemoglobin 33.5 pg (28.0-33.3); Mean Corpuscular Volume 102.3 fL (83.0-100.0); Mean Platelet Volume 8.9 fL (9.4-12.4); Monocytes # 2.4 K/mcL (0.0-1.3); Monocytes % 14.3 %; Platelet Count 389 K/mcL (140-400); Red Cell Distribution Width 14.6 % (11.5-14.5); Segmented Neutrophils % 66.6 %
[2017-11-19 06:05] LABS: BUN/Creatinine Ratio 22 (6-26); Blood Urea Nitrogen 19 mg/dL (8-23); Calcium 8.8 mg/dL (8.6-10.3); Carbon Dioxide 28 mEq/L (23-29); Chloride 100 mEq/L (98-107); Glucose 86 mg/dL (70-105); Osmolality,Calculated 280 (280-300); Potassium 4.1 mEq/L (3.5-5.1); Sodium 134 mEq/L (136-145); eGFR For African Americans > 60 (> 60); eGFR For Non-African Americans > 60 (> 60)
--- NOTE | 2017-11-19 07:10 | Orthopedic Consult Note ---
Date of Encounter: 11/19/17 Time of Encounter: 07:07 Assessment and Plan (1) Femoral neck fracture Current Visit: Yes Status: Acute The diagnosis and treatment options were discussed with Tamika. To enable her to best get out of bed to a chair and then start ambulation to avoid bedrest and its associated complications, the recommendation is for surgical intervention with a left hip hemiarthroplasty. After discussing the pros and cons of treatment options including non-operative and operative intervention, the patient has elected to proceed with left hip hemiarthroplasty at this time. The risks and benefits of the procedure were fully explained in detail, including but not limited to the risk of infection, neurovascular injury, continued pain or stiffness, failure of surgery, reinjury, or need for additional surgery, DVT, PE, general risks of anesthesia and loss of limb or life. No guarantees were given or implied and all questions were answered. The patient understands all the risks and does wish to proceed with written consent. Surgery will be scheduled in a timely manner. No weight bearing through the left upper extremity. Continue sling. Qualifiers: Encounter type: initial encounter Fracture type: closed Laterality: left Qualified Code(s): S72.002A - Fracture of unspecified part of neck of left femur, initial encounter for closed fracture History of Present Illness HPI: Ms. Arriaga is a 82 year old female with rheumatoid arthritis who recently had a fall onto her left side sustained a displaced 4 part proximal humerus fracture. She had a reverse total shoulder with ORIF of the greater tuberosity approximately 1 week ago. Yesterday she was getting ready to come to her first postop visit and was standing felt pain in her hip and then a pop and then an increase in the pain. She was brought to the emergency department with concerns for a hip fracture. X-rays that time confirmed a displaced left femoral neck fracture. She did not fall onto the shoulder and denies any new or increased shoulder pain. No loss of consciousness or chest pain prior to the fall. No neurovascular complaints. Past Med Surg Social Fam HX - Past Medical History Medical history: hypertension, osteoporosis, RA Psychiatric history: no psych history - Past Surgical History Surgical History: , hysterectomy - Social History Smoking Status: Never smoker Smokeless Tobacco Status: No Alcohol use: none Drug use: none - Family History Mother Hx Family Cardiac Disorders: Yes (Hypertension) Hx Family Endocrine Disorder: Yes Medications and Allergies Alendronate Sodium 70 mg PO SA 06/22/15 [History] Calcium Carbonate/Vitamin D3 [Calcium 600 + D Tablet] 1 each PO DAILY 06/22/15 [ History] Hydroxychloroquine [Plaquenuil] 200 mg PO DAILY 06/22/15 [History] Methotrexate [Otrexup] 7.5 mg PO SA 06/22/15 [History] PredniSONE 5 mg PO DAILY 06/22/15 [History] Ranitidine HCl [Zantac] 150 mg PO DAILY 06/22/15 [History] Calcium/Vit B12/FA/Pyridoxine [Folic Acid-Vit B6-Vit B12 Tab] 1 each PO DAILY [History] Losartan/Hydrochlorothiazide [Hyzaar 100-25 Tablet] 1 each PO DAILY 12/27/15 [ History] Oxycodone HCl/Acetaminophen [Percocet 5-325 mg Tablet] 1 tab PO Q6H PRN [History] 3 Allergy/AdvReac Type Severity Reaction Status Date / Time No Known Allergies Allergy Verified 11/09/17 11:38 All Systems Reviewed: The remainder of the systems were reviewed and are negative Physical Exam - Constitutional Vitals: Temp Pulse Resp BP Pulse Ox 98.8 F 65 16 124/64 98 11/19/17 03:11 11/19/17 03:11 11/19/17 03:11 11/19/17 03:11 11/19/17 03:11 General appearance IM: A&O X 3 Exam: Consult Exam: Constitutional -Vitals reviewed -The patient is well developed and well nourished. -Mood is pleasant. -The patient is well groomed. Psychiatric -The patient is fully alert and oriented x 3. Respiratory: -Respiratory effort normal Abdomen: -Soft abdomen -Non tender -Non distended: Left upper extremity: -No deformities. Sling in place -Dressing c/d/i -ROM deferred due to recent surgery -Able to make an "OK" sign, cross the index and long fingers, and extend the thumb. -Sensation grossly intact to light touch throughout the median, radial, and ulnar distributions. -Radial pulse is present; Fingers have good capillary refill. Right upper extremity: -No deformities. The overlying skin is intact. No obvious signs of acute trauma. -No tenderness to palpation throughout. -No significant pain with passive motion of the shoulder, elbow, wrist, and fingers within the limits of the bed. -Able to make an "OK" sign, cross the index and long fingers, and extend the thumb. -Sensation grossly intact to light touch throughout the median, radial, and ulnar distributions. -Radial pulse is present; Fingers have good capillary refill. Left lower extremity: -Pain with log roll -Extremity short/ER -Able to dorsiflex and plantarflex the ankle and toes. -Sensation is grossly intact to light touch throughout the sural, saphenous, superficial peroneal, and deep peroneal distributions. -Toes have good capillary refill. Right lower extremity: -No deformities. The overlying skin is intact. No obvious signs of acute trauma. -No tenderness to palpation throughout. -No pain with passive motion of the hip, knee, ankle, and toes within the limits of the bed. -No pain with axial loading of the thigh. -Able to dorsiflex and plantarflex the ankle and toes. -Sensation is grossly intact to light touch throughout the sural, saphenous, superficial peroneal, and deep peroneal distributions. -Toes have good capillary refill. Results - Labs Result Diagrams: 11/19/17 05:10 11/19/17 05:10 Labs: Abnormal lab results WBC 16.5 K/mcL (4.3-11.1) H 11/19/17 05:10 RBC 3.10 M/mcL (3.82-4.97) L 11/19/17 05:10 Hgb 10.4 g/dL (11.5-15.4) L 11/19/17 05:10 Hct 31.7 % (35.3-44.9) L 11/19/17 05:10 MCV 102.3 fL (83.0-100.0) H 11/19/17 05:10 MCH 33.5 pg (28.0-33.3) H 11/19/17 05:10 RDW 14.6 % (11.5-14.5) H 11/19/17 05:10 MPV 8.9 fL (9.4-12.4) L 11/19/17 05:10 Neutrophils # 11.0 K/mcL (1.6-8.9) H 11/19/17 05:10 Monocytes # 2.4 K/mcL (0.0-1.3) H 11/19/17 05:10 Sodium 134 mEq/L (136-145) L 11/19/17 05:10 H & H 11/19/17 Range/Units 05:10 Hgb 10.4 L (11.5-15.4) g/dL Hct 31.7 L (35.3-44.9) % All other labs normal. - Diagnostic results Shoulder x-ray: image reviewed (AP view of left shoulder visibile and shows previous Reverse TSA intact with no HW changes) Hip x-ray: report reviewed, image reviewed (Displaced left femoral neck fracture. Old appearing right sided pubic rami fractures) Consult Discharge Plan - Plan Referrals: NONE,PCP [Primary Care Provider] -
[2017-11-19] MEDS: Losartan/HCTZ 50-12.5 TABLET PO SCH (07:24)
[2017-11-19] MEDS: predniSONE 5 MG TABLET PO SCH (07:25)
--- NOTE | 2017-11-19 11:59 | Internal Med Progress Note ---
Date of Encounter: 11/19/17 Time of Encounter: 11:56 - Assessment and plan (1) Femoral neck fracture Current Visit: Yes Status: Acute Assessment and plan: Left femoral neck fracture Orthopedic surgery consulted, scheduled to have surgery later today next Pain control with oxycodone X-ray showed: 1. Acute appearing left femoral neck fracture. No evidence of left hip dislocation. given degree of osteopenia, 2. Chronic appearing fracture of right superior pubic ramus and right inferior pubic ramus. Qualifiers: Encounter type: initial encounter Fracture type: closed Laterality: left Qualified Code(s): S72.002A - Fracture of unspecified part of neck of left femur, initial encounter for closed fracture (2) Essential hypertension Current Visit: Yes Status: Chronic Assessment and plan: Stable on losartan and hydrochlorothiazide (3) Rheumatoid arthritis Current Visit: Yes Status: Chronic Assessment and plan: Continue prednisone, Plaquenil and methotrexate Qualifiers: Rheumatoid arthritis location: multiple sites Rheumatoid factor presence: unspecified presence Qualified Code(s): M06.9 - Rheumatoid arthritis, unspecified (4) Osteoporosis Current Visit: Yes Status: Acute Assessment and plan: Alendronate as outpatient Calcium and vitamin D supplements Qualifiers: Osteoporosis type: age-related Presence of current pathological fracture: unspecified Qualified Code(s): M81.0 - Age-related osteoporosis without current pathological fracture - Subjective Interval history: Complaining of pain on the left hip, denies any shortness of breath, no abdominal pain, no chest pain, no diarrhea or dysuria - Constitutional Vitals: Temp Pulse Resp BP Pulse Ox 99.0 F 81 16 125/64 96 11/19/17 11:44 11/19/17 11:44 11/19/17 11:44 11/19/17 11:44 11/19/17 11:44 General appearance: Present: cooperative, mild distress, A&O X 3, answers questions appropriately - Head Head exam: Present: atraumatic, normocephalic - Eye Eye exam: Present: PERRL, conjuntiva pink, sclera anicteric Pupils: Present: PERRL - Neck Neck exam general surgery: Present: supple, trachea midline. Absent: lymphadenopathy - Respiratory Respiratory exam: Present: CTAB. Absent: accessory muscle use, rales, rhonchi, wheezes - Cardiovascular Cardiovascular exam: Present: RRR, +S1, +S2. Absent: diastolic murmur, gallop, rubs, systolic murmur - GI/Abdominal GI/Abdominal exam: Present: normal bowel sounds, soft, no peritoneal signs. Absent: distended, tenderness - Extremities Exam Extremities exam: Present: warm, radial pulses palpable and symmetrical. Absent : calf tenderness, cyanotic, pedal edema Additional comments: Left hip swelling, no ecchymosis Multiple areas of deformity of the joints mainly in the hands due to rheumatoid arthritis - Neurological Exam Neurological exam: Present: CN II-XII intact, oriented X3, no focal deficits. Absent: pronater drift, facial droop, speech deficit - Skin Skin exam: Present: dry, intact Internal Medicine: Result - Labs CBC & Chem 7: 11/19/17 05:10 11/19/17 05:10 Labs: Short CBC 11/19/17 Range/Units 05:10 WBC 16.5 H (4.3-11.1) K/mcL Hgb 10.4 L (11.5-15.4) g/dL Hct 31.7 L (35.3-44.9) % Plt Count 389 (140-400) K/mcL Neutrophils # 11.0 H (1.6-8.9) K/mcL BMP 11/19/17 05:10 Sodium 134 L Potassium 4.1 Chloride 100 Carbon Dioxide 28 BUN 19 Creatinine 0.86 Glucose 86 Calcium 8.8 - Impressions Impressions Chest X-Ray 11/18/17 19:28 IMPRESSION: No acute focal process. Findings of COPD. D/ / Cheo Bowens MD / Cheo Bowens MD Interpreting Provider: Cheo Bowens MD Consult Discharge Plan - Plan Referrals: NONE,PCP [Non-Partnered Physician] -
--- NOTE | 2017-11-19 15:20 | Electrocardiograph Report ---
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
[2017-11-19] MEDS ORDERED: Ethanol\\Acetic Acid\\Na Ace\\Ben 1,000 ML IRRIG.SOLN IR ONE (16:31)
[2017-11-19] MEDS ORDERED: Lidocaine -MPF 2% 2 ML VIAL ONE (16:38)
[2017-11-19] MEDS ORDERED: Ondansetron 4 MG/2 ML VIAL ONE (16:38)
[2017-11-19] MEDS ORDERED: *HR* Succinylcholine 200 MG/10 ML VIAL IVP ONE (16:38)
[2017-11-19] MEDS ORDERED: Lidocaine -MPF 4% 5 ML AMPUL ONE (16:38)
[2017-11-19] MEDS ORDERED: Dexamethasone 4 MG/ML VIAL ONE (16:38)
[2017-11-19] MEDS ORDERED: *HR* Propofol 200 MG/20 ML VIAL IVP ONE (16:39)
[2017-11-19] MEDS ORDERED: *HR* FentaNYL (PF) 100 MCG/2 ML VIAL ONE (16:40)
[2017-11-19] MEDS ORDERED: CeFAZolin Syringe 2,000MG/20 ML SYR IVPB ONE (17:01)
[2017-11-19] MEDS ORDERED: CeFAZolin Syr 2,000MG/20 ML 2,000 MG/20 ML SYRINGE IVPB ONE ×2 (17:15)
[2017-11-19] MEDS ORDERED: *HR* Rocuronium Bromide 50 MG/5 ML VIAL ONE (17:30)
[2017-11-19] MEDS ORDERED: Dexamethasone 4 MG/ML VIAL IVP ONE (17:53)
[2017-11-19] MEDS ORDERED: Ondansetron 4 MG/2 ML VIAL IVP ONE (17:53)
[2017-11-19] MEDS ORDERED: *HR* Labetalol 20 MG/4 ML SYRINGE IVP PRN (17:53)
[2017-11-19] MEDS ORDERED: *HR* Morphine 2 MG/ML SYRINGE IVP PRN (17:53)
[2017-11-19] MEDS ORDERED: Neostigmine Methylsulfate 3 MG/3 ML SYRINGE ONE (18:11)
[2017-11-19] MEDS ORDERED: Acetaminophen IV 1,000 MG/100 ML INFUS..BTL ONE (18:15)
[2017-11-19] MEDS ORDERED: *HR* Morphine 10 MG/ML VIAL ONE (19:09)
--- NOTE | 2017-11-19 19:21 | Physician Discharge Referral ---
- Diagnosis (1) Femoral neck fracture Priority: Primary Status: Acute - Transfer Medications Home Medications: Alendronate Sodium 70 mg PO SA 06/22/15 [History] Calcium Carbonate/Vitamin D3 [Calcium 600 + D Tablet] 1 each PO DAILY 06/22/15 [ History] Hydroxychloroquine [Plaquenuil] 200 mg PO DAILY 06/22/15 [History] Methotrexate [Otrexup] 7.5 mg PO SA 06/22/15 [History] PredniSONE 5 mg PO DAILY 06/22/15 [History] Ranitidine HCl [Zantac] 150 mg PO DAILY 06/22/15 [History] Calcium/Vit B12/FA/Pyridoxine [Folic Acid-Vit B6-Vit B12 Tab] 1 each PO DAILY [History] Losartan/Hydrochlorothiazide [Hyzaar 100-25 Tablet] 1 each PO DAILY 12/27/15 [ History] Oxycodone HCl/Acetaminophen [Percocet 5-325 mg Tablet] 1 tab PO Q6H PRN [History] Allergies/Adverse Reactions: 3 Allergy/AdvReac Type Severity Reaction Status Date / Time No Known Allergies Allergy Verified 11/09/17 11:38 - Respiratory Orders Smoking Cessation: Smoking cessation has been advised. For more information, call the [place] Tobacco Quit Line at 2-065-JKYM-NOW. - Rehabiliation Orders Rehab Potential: Fair Rehab Orders: ROM Exercises, Evaluation for Physical Therapy, Evaluation for Occupational Therapy Other: DISCHARGE INSTRUCTIONS Dr. Sung Total Hip Replacement/Hip Hemiarthroplasty Wound Care -Keep wound / incision area clean and dry. -Keep dressing in place -No baths or swimming until otherwise instructed. -After 14 days, you may begin to shower only if no drainage is present. No submerging the wound under standing water until cleared by your physician (no baths, hot tubs, swimming pools, etc). Sponge baths are the best way to perform personal hygiene while at the same time protecting the wound from moisture. -No scrubbing the wound. You may "pad dry" the wound, but do not rub, as this may open up he wound and pre-dispose to wound infection. -Do not apply lotions or creams to incision site, unless instructed otherwise. -Observe for redness, swelling, or drainage. Please call the clinic immediately if you have fevers, chills with warmth/redness surrounding wound site or if you notice pus drainage from the wound site Activity -No heavy lifting objects greater than 10 pounds. -No driving while on narcotic pain medication. -You may be weight-bear as tolerated on both of your lower extremities. -Use crutches or a walker for ambulation. -Posterior hip precautions for 6 weeks: No bending the hip past 90 degrees. Do not allow the leg to cross the midline of your body (adduction). No twisting motions. Ask your physical therapist to review these precautions with you. Reducing the Risk of Blood Clots -You will need to complete a total 4 week course of enteric coated aspirin 325 mg twice daily. -Wear knee high compression hose 23 hours per day. Discharge Pain Medications -You will be given a prescription for pain medication. Wean off as tolerated. Do not wait to take the pain medication until the pain is severe, as it will be difficult to "catch up" once this occurs. The pain medication usually reaches its full effect ~1 hour after ingesting. -Your prescribed pain medication may contain Tylenol. You must be careful not to exceed 4,000 mg (4 g) of Tylenol (or generic equivalent), from all sources, within a single 24-hour period. -Some common side effects of the narcotic pain medications (Percocet, Oxycodone , Vicodin, etc) include nausea and itching. Benadryl is a great over the counter medication that helps calm your stomach, decreases your anxiety levels, and minimizes the itching. You can easily purchase this at your local pharmacy as an [id number] medication. Please abide by the instructions as printed on t-he bottle. If your nausea persists, make sure to take small amounts of crackers or other rn telephone triage foods. [-Resume 50,000 units of vitamin D2 daily and 1200 mg of calcium supplementation per day Continue sling for left shoulder. Ok for passive ROM exercises, forward elevation to 120 degrees, external rotation to 30 degrees. No internal rotation. - Diet Orders Regular CERTIFICATION: I certify that the transfer of the above named patient to an Extended Care Facility is necessary for the continuing treatment of the diagnosis listed. The above information is true and accurate reflection of patient's current condition. Confidential - Redisclosure prohibited without a patient's written consent.
--- NOTE | 2017-11-19 19:33 | Orthopedic Operative Note ---
Date of procedure: 11/19/17 Pre-op diagnosis: Left hip femoral neck fracture Post-op diagnosis: same Procedure: 1. Left hip hemiarthroplasty INDICATIONS: This is a 82 yo F with rheumatoid arthritis and osteopenia who was standing when she felt a pop and had pain in her left hip. She was taken to the ER and diagnosed with a left displaced femoral neck fracture. After discussing the procedure at length, and based on the patient's age and activity level, the patient elected for operative management with a left hip hemiarthroplasty. The risks and benefits of the procedure were fully explained. Those risks include but are not limited to, infection, neurovascular injury, continued pain, stiffness, further injury, need for further surgery, DVT, PE, loss of limb, and loss of life. The patient understood all of these risks and wished to proceed. Informed consent was obtained. No guarantees were stated or implied. OPERATIVE REPORT: The patient was identified in the holding area. The left lower extremity was marked, the patient was taken to the operating room and general anesthetic was administered on the hospital bed. The patients head, neck and airway were protected by anesthesia through the case. The patient was then transferred to the operating table and placed in the lateral position on a montoya bag. All bony prominences were well padded. The left lower extremity was then prepped and draped in the normal manner. Preoperative antibiotics were given prior to incision. A surgical time out protocol was then performed. A posterior approach was made. Incision was made just posterior to the greater trochanter. Sharp dissection was carried through subcutaneous tissue down to the fascia, coagulating any skin bleeders. Fascia heladio and gluteus west fascia were then incised. West fibers were digitally dissected and a Charnley retractor was placed. The hip was extended and internally rotated. A Cobra retractor was then placed over the ilium to retract the abductors anteriorly. Electrocautery was then used to release the piriformis and short external rotators and capsule from the posterior aspect of the hip joint and a full-thickness flap was created. This was tagged for later repair. The release was carried down distally to the level of the lesser trochanter. At this point the hip was dislocated and the femoral neck fracture was exposed. The fracture involved the calcar medially, the lesser tuberosity was intact. A saw was used to freshen up the femoral neck cut laterally. The femoral head was removed with a corkscrew. The fractured neck fragments were removed with a ronguer. We then exposed the femur using a femoral elevator, and sequentially remained and broached the femur to appropriate size in accordance with the Biomet system. We seated a size 9 broach and then cemented a size [address] at the level of the calcar using standard cement technique. A cement restrictor was placed prior to the stem. We then did initial trial reductions with -6 and then -3 neck. We had good soft tissue tensioning and stable range of motion, with good reproduction of leg lengths with the -3 neck. Satisfied with the hip kinematics, we cleaned and dried the trunion and the final femoral head was impacted and the hip was reduced. We then did our final check of range of motion, stability and leg lengths. We then thoroughly irrigated the wound and closed the hip capsule with #1 ethibond. The piriformis tendon and external rotators were repaired through bone tunnels. Fascia heladio was closed with #1 ethibond and subcutaneous tissues with 2-0 stratafix. Skin was closed with 3-0 stratafix. We then placed a zipline dressing and sterile dressings, the patient was awoken by anesthesia and transferred to PACU in stable condition. Patient tolerated the procedure well. Postop plan: The patient will be transferred back to the floor and will be weight-bearing as tolerated postop. Implants: Biomet Echo FX Hip system Standard femoral stem, size 7 cemented Bone cement restrictor Size 45 mm head -3 neck Complications: none Anesthesia: GETA Surgeon: Fred Sung Was there an assistant superintendent present: No Estimated blood loss (cc): 150 Condition: stable Disposition: PACU
--- NOTE | 2017-11-19 21:26 | Anesthesia Evaluation Post Op ---
Date of Encounter: 11/19/17 Time of Encounter: 08:28 - Discharge PostOp Status: Transfer Patient to floor (Patient's vital signs have been reviewed. Patient is stable postoperatively and has adequately recovered from anesthesia, unless otherwise noted. Patient is determined to have stable airway patency and respiratory function including respiratory rate and oxygen saturation. Patient has a stable heart rate, blood pressure and adequate hydration. Patients mental status is acceptable. Patients temperature is appropriate. Pain and nausea are adequately controlled.)
[2017-11-20] MEDS ORDERED: ceFAZolin 2,000 MG in D5% in Water 100 ML IVPB SCH (01:00)
[2017-11-20] MEDS: CeFAZolin Premix DUPLEX 2,000 MG/50 ML BAG IVPB SCH ×2 (01:41→09:09)
[2017-11-20] MEDS: *HR* Heparin 5,000 UNIT/ML VIAL SQ SCH ×2 (05:25→16:51)
[2017-11-20 07:18] LABS: BUN/Creatinine Ratio 25 (6-26); Blood Urea Nitrogen 20 mg/dL (8-23); Calcium 8.4 mg/dL (8.6-10.3); Carbon Dioxide 29 mEq/L (23-29); Chloride 96 mEq/L (98-107); Glucose 137 mg/dL (70-105); Osmolality,Calculated 277 (280-300); Potassium 4.6 mEq/L (3.5-5.1); Sodium 131 mEq/L (136-145); eGFR For African Americans > 60 (> 60); eGFR For Non-African Americans > 60 (> 60)
[2017-11-20 07:32] LABS: Hematocrit 30.1 % (35.3-44.9); Hemoglobin 9.9 g/dL (11.5-15.4); Mean Corpuscular HGB Conc 32.9 g/dL (31.6-35.5); Mean Corpuscular Hemoglobin 34.3 pg (28.0-33.3); Mean Corpuscular Volume 104.2 fL (83.0-100.0); Mean Platelet Volume 9.1 fL (9.4-12.4); Platelet Count 352 K/mcL (140-400); Red Blood Count 2.89 M/mcL (3.82-4.97); Red Cell Distribution Width 14.3 % (11.5-14.5)
[2017-11-20] MEDS ORDERED: *HR* Methotrexate 2.5 MG TABLET PO SCH (08:45)
[2017-11-20] MEDS ORDERED: Patient Taking Own Medication 1 EACH PO SCH (09:00)
[2017-11-20] MEDS: Losartan/HCTZ 50-12.5 TABLET PO SCH (09:10)
[2017-11-20] MEDS: predniSONE 5 MG TABLET PO SCH (09:10)
[2017-11-20] MEDS: *HR* HYDROcodone/Acet 5/325 mg TABLET PO PRN (09:19)
--- NOTE | 2017-11-20 11:12 | Internal Med Progress Note ---
Date of Encounter: 11/20/17 Time of Encounter: 11:09 - Assessment and plan (1) Femoral neck fracture Current Visit: Yes Status: Acute Assessment and plan: Left femoral neck fracture s/p hemiarthroplasty Orthopedic surgery following Pain control with oxycodone X-ray showed: 1. Acute appearing left femoral neck fracture. No evidence of left hip dislocation. given degree of osteopenia, 2. Chronic appearing fracture of right superior pubic ramus and right inferior pubic ramus. Qualifiers: Encounter type: initial encounter Fracture type: closed Laterality: left Qualified Code(s): S72.002A - Fracture of unspecified part of neck of left femur, initial encounter for closed fracture (2) Essential hypertension Current Visit: Yes Status: Chronic Assessment and plan: Stable on losartan and hydrochlorothiazide (3) Rheumatoid arthritis Current Visit: Yes Status: Chronic Assessment and plan: Continue prednisone, Plaquenil and methotrexate Qualifiers: Rheumatoid arthritis location: multiple sites Rheumatoid factor presence: unspecified presence Qualified Code(s): M06.9 - Rheumatoid arthritis, unspecified (4) Osteoporosis Current Visit: Yes Status: Acute Assessment and plan: Alendronate as outpatient Calcium and vitamin D supplements Qualifiers: Osteoporosis type: age-related Presence of current pathological fracture: unspecified Qualified Code(s): M81.0 - Age-related osteoporosis without current pathological fracture - Subjective Interval history: Stable. Complaining of less pain on the left hip, denies any shortness of breath, no abdominal pain, no chest pain, no diarrhea or dysuria - Constitutional Vitals: Temp Pulse Resp BP Pulse Ox 98.1 F 82 16 120/67 97 11/20/17 07:10 11/20/17 04:53 11/20/17 07:10 11/20/17 07:10 11/20/17 07:10 General appearance: Present: cooperative, mild distress, A&O X 3, answers questions appropriately Exam: - Head Head exam: Present: atraumatic, normocephalic - Eye Eye exam: Present: PERRL, conjuntiva pink, sclera anicteric Pupils: Present: PERRL - Neck Neck exam general surgery: Present: supple, trachea midline. Absent: lymphadenopathy - Respiratory Respiratory exam: Present: CTAB. Absent: accessory muscle use, rales, rhonchi, wheezes - Cardiovascular Cardiovascular exam: Present: RRR, +S1, +S2. Absent: diastolic murmur, gallop, rubs, systolic murmur - GI/Abdominal GI/Abdominal exam: Present: normal bowel sounds, soft, no peritoneal signs. Absent: distended, tenderness - Extremities Exam Extremities exam: Present: warm, radial pulses palpable and symmetrical. Absent : calf tenderness, cyanotic, pedal edema Additional comments: Left hip swelling, no ecchymosis, surgical wound without signs of hematoma or infection Multiple areas of deformity of the joints mainly in the hands due to rheumatoid arthritis - Neurological Exam Neurological exam: Present: CN II-XII intact, oriented X3, no focal deficits. Absent: pronater drift, facial droop, speech deficit - Skin Skin exam: Present: dry, intact Internal Medicine: Result - Labs CBC & Chem 7: 11/20/17 06:22 11/20/17 06:22 Labs: Short CBC 11/20/17 Range/Units 06:22 WBC 18.1 H (4.3-11.1) K/mcL Hgb 9.9 L (11.5-15.4) g/dL Hct 30.1 L (35.3-44.9) % Plt Count 352 (140-400) K/mcL BMP 11/20/17 06:22 Sodium 131 L Potassium 4.6 Chloride 96 L Carbon Dioxide 29 BUN 20 Creatinine 0.79 Glucose 137 H Calcium 8.4 L - Impressions Impressions Shoulder X-Ray 11/19/17 00:00 IMPRESSION: Please see operative report further details. D/ / Singh Villarreal MD / Singh Villarreal MD Interpreting Provider: Singh Villarreal MD Hip X-Ray 11/19/17 19:21 IMPRESSION: Postsurgical changes from left hip arthroplasty. D/ / Mary Grace Mendiola MD / Mary Grace Mendiola MD Interpreting Provider: Mary Grace Mendiola MD - VTE Documentation of Mechanical Device: Venous foot pump, device Consult Discharge Plan - Plan Referrals: NONE,PCP [Non-Partnered Physician] -
[2017-11-20] MEDS: Acetaminophen 325 MG TABLET PO PRN (16:51)
[2017-11-20] MEDS: *HR* OxyCODONE Immed Rel 5 MG TABLET PO PRN (21:24)
[2017-11-21] MEDS: *HR* Heparin 5,000 UNIT/ML VIAL SQ SCH ×2 (05:24→18:38)
[2017-11-21 06:12] LABS: Hematocrit 26.9 % (35.3-44.9); Hemoglobin 8.6 g/dL (11.5-15.4); Mean Corpuscular Hemoglobin 33.5 pg (28.0-33.3); Mean Corpuscular Volume 104.7 fL (83.0-100.0); Mean Platelet Volume 9.2 fL (9.4-12.4); Platelet Count 323 K/mcL (140-400); Red Blood Count 2.57 M/mcL (3.82-4.97); Red Cell Distribution Width 14.3 % (11.5-14.5)
[2017-11-21 06:34] LABS: BUN/Creatinine Ratio 31 (6-26); Blood Urea Nitrogen 30 mg/dL (8-23); Calcium 8.3 mg/dL (8.6-10.3); Carbon Dioxide 29 mEq/L (23-29); Chloride 96 mEq/L (98-107); Glucose 111 mg/dL (70-105); Osmolality,Calculated 285 (280-300); Potassium 3.6 mEq/L (3.5-5.1); Sodium 134 mEq/L (136-145); eGFR For African Americans > 60 (> 60); eGFR For Non-African Americans 55 (> 60)
[2017-11-21] MEDS: Losartan/HCTZ 50-12.5 TABLET PO SCH (09:05)
[2017-11-21] MEDS: predniSONE 5 MG TABLET PO SCH (09:05)
[2017-11-21] MEDS: Cholecalciferol (D-3) 1,000 UNIT TABLET PO SCH (09:05)
[2017-11-21] MEDS: *HR* HYDROcodone/Acet 5/325 mg TABLET PO PRN ×2 (09:09→19:06)
[2017-11-21] MEDS: Acetaminophen 325 MG TABLET PO PRN (13:34)
[2017-11-21] MEDS ORDERED: Furosemide 40 MG/4 ML VIAL IVP ONE (13:56)
--- NOTE | 2017-11-21 14:00 | Internal Med Progress Note ---
Date of Encounter: 11/21/17 Time of Encounter: 13:58 - Assessment and plan (1) Femoral neck fracture Current Visit: Yes Status: Acute Assessment and plan: Left femoral neck fracture s/p hemiarthroplasty Orthopedic surgery following Pain control with oxycodone X-ray showed: 1. Acute appearing left femoral neck fracture. No evidence of left hip dislocation. given degree of osteopenia, 2. Chronic appearing fracture of right superior pubic ramus and right inferior pubic ramus. Qualifiers: Encounter type: initial encounter Fracture type: closed Laterality: left Qualified Code(s): S72.002A - Fracture of unspecified part of neck of left femur, initial encounter for closed fracture (2) Bronchitis Current Visit: Yes Status: Acute Assessment and plan: Acute bronchitis, possible congestion White blood cell count remains elevated Check a urine analysis Start Rocephin, given 1 dose of IV Lasix, order echocardiogram Chest x-ray showed: No evidence of pneumonia or pulmonary edema, very limited study due to large chronic hiliar prominence in the right lung field (3) Essential hypertension Current Visit: Yes Status: Chronic Assessment and plan: Stable on losartan and hydrochlorothiazide (4) Rheumatoid arthritis Current Visit: Yes Status: Chronic Assessment and plan: Continue prednisone, Plaquenil may hold methotrexate until infection is ruled out Qualifiers: Rheumatoid arthritis location: multiple sites Rheumatoid factor presence: unspecified presence Qualified Code(s): M06.9 - Rheumatoid arthritis, unspecified (5) Osteoporosis Current Visit: Yes Status: Acute Assessment and plan: Alendronate as outpatient Calcium and vitamin D supplements Qualifiers: Osteoporosis type: age-related Presence of current pathological fracture: unspecified Qualified Code(s): M81.0 - Age-related osteoporosis without current pathological fracture - Subjective Interval history: Complaining of a new cough, sounds very congested. No fevers. Complaining of less pain on the left hip, feels short of breath, no abdominal pain, no chest pain, no diarrhea or dysuria - Constitutional Vitals: Temp Pulse Resp BP Pulse Ox 98.4 F 93 16 134/56 96 11/21/17 10:02 11/21/17 10:02 11/21/17 10:02 11/21/17 10:02 11/21/17 10:02 General appearance: Present: cooperative, mild distress, A&O X 3, answers questions appropriately Exam: - Head Head exam: Present: atraumatic, normocephalic - Eye Eye exam: Present: PERRL, conjuntiva pink, sclera anicteric Pupils: Present: PERRL - Neck Neck exam general surgery: Present: supple, trachea midline. Absent: lymphadenopathy - Respiratory Respiratory exam: Present: CTAB, left basilar crackles. Absent: accessory muscle use, rhonchi, wheezes - Cardiovascular Cardiovascular exam: Present: RRR, +S1, +S2. Absent: diastolic murmur, gallop, rubs, systolic murmur - GI/Abdominal GI/Abdominal exam: Present: normal bowel sounds, soft, no peritoneal signs. Absent: distended, tenderness - Extremities Exam Extremities exam: Present: warm, radial pulses palpable and symmetrical. Absent : calf tenderness, cyanotic, pedal edema Additional comments: Left hip swelling, no ecchymosis, surgical wound without signs of hematoma or infection Multiple areas of deformity of the joints mainly in the hands due to rheumatoid arthritis - Neurological Exam Neurological exam: Present: CN II-XII intact, oriented X3, no focal deficits. Absent: pronater drift, facial droop, speech deficit - Skin Skin exam: Present: dry, intact Internal Medicine: Result - Labs CBC & Chem 7: 11/21/17 05:42 11/21/17 05:42 Labs: Short CBC 11/21/17 Range/Units 05:42 WBC 18.9 H (4.3-11.1) K/mcL Hgb 8.6 L (11.5-15.4) g/dL Hct 26.9 L (35.3-44.9) % Plt Count 323 (140-400) K/mcL BMP 11/21/17 05:42 Sodium 134 L Potassium 3.6 Chloride 96 L Carbon Dioxide 29 BUN 30 H Creatinine 0.97 Glucose 111 H Calcium 8.3 L - Impressions Impressions Chest X-Ray 11/21/17 12:10 IMPRESSION: 1. Cardiomegaly. 2. Calcific atherosclerosis aorta. 3. Osteoporosis with mild anterior wedging mid thoracic spine and resultant hyperkyphosis. 4. Senescent pulmonary changes. No focal infiltrate is evident. D/ / Dusty Liu / Dusty Liu Interpreting Provider: Dusty Liu - VTE Documentation of Mechanical Device: Venous foot pump, device Consult Discharge Plan - Plan Referrals: NONE,PCP [Non-Partnered Physician] -
[2017-11-21 14:47] LABS: Bilirubin,Urine Negative (Negative); Blood,Urine Small (Negative); Clarity,Urine Cloudy (Clear); Color,Urine Yellow (Yellow); Glucose,Urine (UA) Normal (Normal); Ketones,Urine Negative (Negative); Leukocyte Esterase,Urine Large (Negative); Nitrite,Urine Positive (Negative); Protein,Urine Negative (Neg-Trace); Specific Gravity,Urine 1.015 (1.010-1.025); Urobilinogen,Urine Normal (Normal)
[2017-11-21 14:52] LABS: Bacteria,Urine Moderate per hpf (None-Few); Hyaline Casts,Urine Few per lpf (None-Few); Squamous Epithelial Cell,Urine Few per lpf (None-Few); WBC,Urine TNTC per hpf (0-3)
[2017-11-21] MEDS: cefTRIAXone 1,000 MG in Water for inj. (sterile) 20 ML 10 ML IVP SCH (15:58)
[2017-11-21] MEDS ORDERED: Temazepam 15 MG CAPSULE PO PRN (20:50)
--- NOTE | 2017-11-21 20:52 | Orthopedics Progress Note ---
Date of Encounter: 11/21/17 Time of Encounter: 20:52 Subjective Principal diagnosis: Left hip fracture and left shoulder surgery Interval history: The patient is without complaints. Afebrile vital signs are stable. Incision is clean dry and intact. Neurovascularly intact with regard to bilateral upper and lower extremities. Fires all upper and lower extremity motor groups. Assessment :stable. Plan mobilize ,continue analgesics, discharge planning. Objective Vital signs: Vital Signs Temp Pulse Resp BP Pulse Ox 11/21/17 20:24 97 11/21/17 19:03 98.1 F 95 16 125/67 97 11/21/17 15:00 98.3 F 90 16 103/60 95 11/21/17 10:02 98.4 F 93 16 134/56 96 11/21/17 06:38 98.7 F 89 16 128/56 95 11/21/17 03:26 98.5 F 85 14 130/57 94 11/20/17 23:03 98.5 F 79 14 95/54 94 Intake and Output 11/21/17 11/21/17 11/21/17 07:59 15:59 23:59 Intake Total 0 / 0 350 / 350 250 / 250 Output Total 300 / 300 451 / 451 0 / 0 Balance -300 / -300 -101 / -101 250 / 250 Intake: IV Fluids Rocephin 1,000 MG In Water for inj. (sterile) 10 ML @ 300 mls/ hr IVP DAILY [facility] Rx#:[id number] Oral 0 / 0 350 / 350 240 / 240 Output: Urine 300 / 300 451 / 451 0 / 0 Other: Meal Lunch Dinner Percent of Meal Consumed 75% 100% Stool Size Small Stool Consistency formed Stool Color Brown Weight 55.4 kg Patient Weight 11/21/17 23:59 Weight 55.4 kg - Labs CBC & BMP: 11/21/17 05:42 11/21/17 05:42 Labs: Abnormal lab results WBC 18.9 K/mcL (4.3-11.1) H 11/21/17 05:42 RBC 2.57 M/mcL (3.82-4.97) L 11/21/17 05:42 Hgb 8.6 g/dL (11.5-15.4) L 11/21/17 05:42 Hct 26.9 % (35.3-44.9) L 11/21/17 05:42 MCV 104.7 fL (83.0-100.0) H 11/21/17 05:42 MCH 33.5 pg (28.0-33.3) H 11/21/17 05:42 MPV 9.2 fL (9.4-12.4) L 11/21/17 05:42 Neutrophils # 11.0 K/mcL (1.6-8.9) H 11/19/17 05:10 Monocytes # 2.4 K/mcL (0.0-1.3) H 11/19/17 05:10 Sodium 134 mEq/L (136-145) L 11/21/17 05:42 Chloride 96 mEq/L (98-107) L 11/21/17 05:42 BUN 30 mg/dL (8-23) H 11/21/17 05:42 Est GFR (Non-Af Amer) 55 (> 60) L 11/21/17 05:42 BUN/Creatinine Ratio 31 (6-26) H 11/21/17 05:42 Glucose 111 mg/dL (70-105) H 11/21/17 05:42 Calcium 8.3 mg/dL (8.6-10.3) L 11/21/17 05:42 Urine Clarity Cloudy (Clear) A 11/21/17 14:35 Urine Blood Small (Negative) H 11/21/17 14:35 Urine Nitrite Positive (Negative) A 11/21/17 14:35 Ur Leukocyte Esterase Large (Negative) H 11/21/17 14:35 Urine Microscopic RBC 5-15 per hpf (0-3) H 11/21/17 14:35 Urine Microscopic WBC TNTC per hpf (0-3) H 11/21/17 14:35 Urine Bacteria Moderate per hpf (None-Few) H 11/21/17 14:35 Ur Culture Indicated? YES (NO) A 11/21/17 14:35 - VTE Documentation of Mechanical Device: Venous foot pump, device Consult Discharge Plan - Plan Referrals: NONE,PCP [Non-Partnered Physician] -
[2017-11-22] MEDS: *HR* OxyCODONE Immed Rel 5 MG TABLET PO PRN (00:41)
[2017-11-22] MEDS: *HR* HYDROcodone/Acet 5/325 mg TABLET PO PRN ×3 (02:35→19:31)
[2017-11-22] MEDS: *HR* Heparin 5,000 UNIT/ML VIAL SQ SCH (04:58)
[2017-11-22 06:32] LABS: Hematocrit 24.7 % (35.3-44.9); Hemoglobin 7.9 g/dL (11.5-15.4); Mean Corpuscular Hemoglobin 33.2 pg (28.0-33.3); Mean Corpuscular Volume 103.8 fL (83.0-100.0); Mean Platelet Volume 9.3 fL (9.4-12.4); Platelet Count 300 K/mcL (140-400); Red Blood Count 2.38 M/mcL (3.82-4.97); Red Cell Distribution Width 14.3 % (11.5-14.5)
[2017-11-22 08:01] LABS: BUN/Creatinine Ratio 32 (6-26); Blood Urea Nitrogen 26 mg/dL (8-23); Calcium 8.4 mg/dL (8.6-10.3); Carbon Dioxide 30 mEq/L (23-29); Chloride 98 mEq/L (98-107); Glucose 103 mg/dL (70-105); Osmolality,Calculated 275 (280-300); Potassium 3.8 mEq/L (3.5-5.1); Sodium 130 mEq/L (136-145); eGFR For African Americans > 60 (> 60); eGFR For Non-African Americans > 60 (> 60)
[2017-11-22] MEDS: Losartan/HCTZ 50-12.5 TABLET PO SCH (08:12)
[2017-11-22] MEDS: predniSONE 5 MG TABLET PO SCH (08:16)
[2017-11-22] MEDS: cefTRIAXone 1,000 MG in Water for inj. (sterile) 20 ML 10 ML IVP SCH (08:16)
[2017-11-22] MEDS: Cholecalciferol (D-3) 1,000 UNIT TABLET PO SCH (08:16)
--- NOTE | 2017-11-22 10:33 | Orthopedics Progress Note ---
Date of Encounter: 11/22/17 Time of Encounter: 10:29 - Assessment and Plan (1) Femoral neck fracture Current Visit: Yes Status: Acute Qualifiers: Encounter type: initial encounter Fracture type: closed Laterality: left Qualified Code(s): S72.002A - Fracture of unspecified part of neck of left femur, initial encounter for closed fracture Subjective Principal diagnosis: Left hip fracture and left shoulder surgery Interval history: S: Doing well with no acute issues overnight. Has been up to the chair. Ambulation with walker limited 2/2 shoulder surgery. AFVSS Hgb 7.9 GEN: NAD, AAOx3 LUE: Dress c/d/i DNVI ax/m/r/u 2+ RP LLE: Dress c/d/i DNVI s/s/t/sp/dp +EHL/PF/DF BCR 82 yo F s/p L hip hemiarthroplasty, L shoulder reverse TSA for fracture -PT/OT -WBAT LLE for transfers to chair, limited with walker 2/2 shoulder surgery -Phase I PT LUE -Monitor Hgb, asymptomatic currently -Discharge planning - to SNF, d/c when arranged Objective Vital signs: Vital Signs Temp Pulse Resp BP Pulse Ox 11/22/17 06:29 98.3 F 80 18 96/62 95 11/21/17 23:31 98.2 F 77 16 110/66 97 11/21/17 20:24 97 11/21/17 19:03 98.1 F 95 16 125/67 97 11/21/17 15:00 98.3 F 90 16 103/60 95 Intake and Output 11/21/17 11/22/17 11/22/17 23:59 07:59 15:59 Intake Total 250 / 250 50 / 50 130 / 130 Output Total 0 / 0 300 / 300 Balance 250 / 250 -250 / -250 130 / 130 Intake: IV Fluids Rocephin 1,000 MG In Water for inj. (sterile) 10 ML @ 300 mls/ hr IVP DAILY [facility] Rx#:[id number] Oral 240 / 240 50 / 50 120 / 120 Output: Urine 0 / 0 300 / 300 Other: Meal Dinner Breakfast Percent of Meal Consumed 100% 10% # Voids 1 - Labs CBC & BMP: 11/22/17 05:55 11/22/17 05:55 Labs: Abnormal lab results WBC 12.8 K/mcL (4.3-11.1) H 11/22/17 05:55 RBC 2.38 M/mcL (3.82-4.97) L 11/22/17 05:55 Hgb 7.9 g/dL (11.5-15.4) L 11/22/17 05:55 Hct 24.7 % (35.3-44.9) L 11/22/17 05:55 MCV 103.8 fL (83.0-100.0) H 11/22/17 05:55 MPV 9.3 fL (9.4-12.4) L 11/22/17 05:55 Neutrophils # 11.0 K/mcL (1.6-8.9) H 11/19/17 05:10 Monocytes # 2.4 K/mcL (0.0-1.3) H 11/19/17 05:10 Sodium 130 mEq/L (136-145) L 11/22/17 05:55 Carbon Dioxide 30 mEq/L (23-29) H 11/22/17 05:55 BUN 26 mg/dL (8-23) H 11/22/17 05:55 BUN/Creatinine Ratio 32 (6-26) H 11/22/17 05:55 Calculated Osmolality 275 (280-300) L 11/22/17 05:55 Calcium 8.4 mg/dL (8.6-10.3) L 11/22/17 05:55 Urine Clarity Cloudy (Clear) A 11/21/17 14:35 Urine Blood Small (Negative) H 11/21/17 14:35 Urine Nitrite Positive (Negative) A 11/21/17 14:35 Ur Leukocyte Esterase Large (Negative) H 11/21/17 14:35 Urine Microscopic RBC 5-15 per hpf (0-3) H 11/21/17 14:35 Urine Microscopic WBC TNTC per hpf (0-3) H 11/21/17 14:35 Urine Bacteria Moderate per hpf (None-Few) H 11/21/17 14:35 Ur Culture Indicated? YES (NO) A 11/21/17 14:35 - VTE Documentation of Mechanical Device: Venous foot pump, device Consult Discharge Plan - Plan Additional Instructions: Phase 1- External rotation and forward elevation- arm Total Hip precautions Referrals: NONE,PCP [Non-Partnered Physician] -
--- NOTE | 2017-11-22 10:52 | Internal Med Progress Note ---
Date of Encounter: 11/22/17 Time of Encounter: 10:49 - Assessment and plan (1) Acute blood loss anemia Current Visit: Yes Status: Acute Assessment and plan: Acute blood lows anemia secondary to possible upper GI bleed, in combination with postsurgical blood loss, exacerbated by heparin Transfuse 1 unit of blood, start Protonix IV, GI consulted, IV fluids, nothing by mouth after midnight Stop heparin Monitor CBC Hemoglobin was 12.7 at the beginning of this month and dropped down to 7.9 (2) UTI (urinary tract infection) Current Visit: Yes Status: Acute Assessment and plan: Continue Rocephin day #2 Culture pending Qualifiers: Urinary tract infection type: acute cystitis Hematuria presence: with hematuria Qualified Code(s): N30.01 - Acute cystitis with hematuria (3) Femoral neck fracture Current Visit: Yes Status: Acute Assessment and plan: Left femoral neck fracture s/p hemiarthroplasty Orthopedic surgery following Pain control with oxycodone X-ray showed: 1. Acute appearing left femoral neck fracture. No evidence of left hip dislocation. given degree of osteopenia, 2. Chronic appearing fracture of right superior pubic ramus and right inferior pubic ramus. Qualifiers: Encounter type: initial encounter Fracture type: closed Laterality: left Qualified Code(s): S72.002A - Fracture of unspecified part of neck of left femur, initial encounter for closed fracture (4) Bronchitis Current Visit: Yes Status: Acute Assessment and plan: Acute bronchitis, possible congestion White blood cell count improving Continue Rocephin day 2 echocardiogram pending Chest x-ray showed: No evidence of pneumonia or pulmonary edema, very limited study due to large chronic hiliar prominence in the right lung field (5) Essential hypertension Current Visit: Yes Status: Chronic Assessment and plan: Stable on losartan and hydrochlorothiazide (6) Rheumatoid arthritis Current Visit: Yes Status: Chronic Assessment and plan: Continue prednisone, Plaquenil may hold methotrexate until infection is ruled out Qualifiers: Rheumatoid arthritis location: multiple sites Rheumatoid factor presence: unspecified presence Qualified Code(s): M06.9 - Rheumatoid arthritis, unspecified (7) Osteoporosis Current Visit: Yes Status: Acute Assessment and plan: Alendronate as outpatient Calcium and vitamin D supplements Qualifiers: Osteoporosis type: age-related Presence of current pathological fracture: unspecified Qualified Code(s): M81.0 - Age-related osteoporosis without current pathological fracture - Subjective Interval history: Says she has been having dark stool on and off. Complaining of cough, less congested. No fevers. Complaining of less pain on the left hip, feels short of breath, no abdominal pain, no chest pain, no diarrhea or dysuria - Constitutional Vitals: Temp Pulse Resp BP Pulse Ox 98.3 F 80 18 96/62 95 11/22/17 06:29 11/22/17 06:29 11/22/17 06:29 11/22/17 06:29 11/22/17 06:29 General appearance: Present: cooperative, mild distress, A&O X 3, answers questions appropriately Exam: - Head Head exam: Present: atraumatic, normocephalic - Eye Eye exam: Present: PERRL, conjuntiva pink, sclera anicteric Pupils: Present: PERRL - Neck Neck exam general surgery: Present: supple, trachea midline. Absent: lymphadenopathy - Respiratory Respiratory exam: Present: CTAB, left basilar crackles. Absent: accessory muscle use, rhonchi, wheezes - Cardiovascular Cardiovascular exam: Present: RRR, +S1, +S2. Absent: diastolic murmur, gallop, rubs, systolic murmur - GI/Abdominal GI/Abdominal exam: Present: normal bowel sounds, soft, no peritoneal signs. Absent: distended, tenderness - Extremities Exam Extremities exam: Present: warm, radial pulses palpable and symmetrical. Absent : calf tenderness, cyanotic, pedal edema Additional comments: Left hip swelling, no ecchymosis, surgical wound without signs of hematoma or infection Multiple areas of deformity of the joints mainly in the hands due to rheumatoid arthritis - Neurological Exam Neurological exam: Present: CN II-XII intact, oriented X3, no focal deficits. Absent: pronater drift, facial droop, speech deficit - Skin Skin exam: Present: dry, intact Internal Medicine: Result - Labs CBC & Chem 7: 11/22/17 05:55 11/22/17 05:55 Labs: Short CBC 11/22/17 Range/Units 05:55 WBC 12.8 H (4.3-11.1) K/mcL Hgb 7.9 L (11.5-15.4) g/dL Hct 24.7 L (35.3-44.9) % Plt Count 300 (140-400) K/mcL BMP 11/22/17 05:55 Sodium 130 L Potassium 3.8 Chloride 98 Carbon Dioxide 30 H BUN 26 H Creatinine 0.81 Glucose 103 Calcium 8.4 L Urine 11/21/17 Range/Units 14:35 Urine Color Yellow (Yellow) Urine Clarity Cloudy A (Clear) Urine pH 7.0 (5.0-8.0) pH Units Ur Specific [place] 1.015 (1.010-1.025) Urine Protein Negative (Neg-Trace) mg/dL Urine Glucose (UA) Normal (Normal) mg/dL - Impressions Impressions Chest X-Ray 11/21/17 12:10 IMPRESSION: 1. Cardiomegaly. 2. Calcific atherosclerosis aorta. 3. Osteoporosis with mild anterior wedging mid thoracic spine and resultant hyperkyphosis. 4. Senescent pulmonary changes. No focal infiltrate is evident. D/ / Dusty Liu / Dusty Liu Interpreting Provider: Dusty Liu - VTE Documentation of Mechanical Device: Venous foot pump, device Consult Discharge Plan - Plan Additional Instructions: Phase 1- External rotation and forward elevation- arm Total Hip precautions Referrals: NONE,PCP [Non-Partnered Physician] -
[2017-11-22] MEDS ORDERED: 0.9 % Sodium Chloride 250 ML ONE (13:09)
[2017-11-22] MEDS: Pantoprazole 40 MG VIAL IVP SCH ×2 (13:40→17:30)
--- NOTE | 2017-11-22 13:54 | Gastroenterology Consult Note ---
<SammycaitieTammie H - Last Filed: 11/22/17 16:06> Date of Encounter: 11/22/17 Time of Encounter: 13:33 - Assessment and plan (1) LGI bleed Current Visit: Yes Status: Acute Assessment and plan: 82 yo female PMHX Rheumatoid arthritis, HTN, and osteopenia here for left hemiarthroplasty s/p femoral neck fracture. Recent shoulder surgery. Patient with gradual decline in Hgb, development of melena this morning. -Last colonoscopy approximately 10 years ago. -Takes daily aspirin, no other anticoagulation. -Agree with PPI -Hold heparin; monitor H&H -NPO -transfusion per primary team -Will do EGD this afternoon. - Time Spent With Patient Total time spent is greater than 50% in coordination of care (as documented) at patient's floor/unit and/or counseling patient: GI History of Present Illness - Data of Consult Consult date: 11/22/17 Requesting Physician: Ericka Doshi MD - Consult Narrative Reason for consult: acute blood loss anemia and melena History of present illness: Ms. Arriaga is an 82 year old female with past medical history of rheumatoid arthritis, osteoporosis, and hypertension. She presented to [facility] on 11/18/2017 after sustaining a closed left femoral fracture of the neck. Patient underwent hemiarthroplasty on 11/19/2017. Patient is currently being treated for bronchitis and a urinary tract infection. She is on daily treatment with prednisone for her rheumatoid arthritis as well as Plaquenil. Patient's hospital course was complicated secondary to recent shoulder surgery. GI was consulted as her hemoglobin has continued to trend downwards (12.7 at the beginning of the month, down to 7.9 today). She was given 1 unit of packed red blood cells this morning, made NPO, started on Protonix, and had SQ heparin discontinued. This morning, patient is resting comfortably. She denies abdominal pain, hematochezia, hematemesis, nausea, or vomiting. She does report a dark colored bowel movement this morning. She denies diarrhea. She denies dysuria or hematuria. She denies chest pain, shortness of breath, palpitations, dizziness, or lightheadedness. She denies weakness, fevers, or chills. She states her last colonoscopy was approximately 10 years ago in [place]. She states she recently had a letter in the mail stating it was time for her next colonoscopy. Colonoscopy: approximately 10 years ago Past Med Surg Social Fam HX - Past Medical History Attestation: Yes The following information was validated with the patient. Source: patient, old records reviewed, obtained from family Medical history: hypertension, osteoporosis, RA Psychiatric history: no psych history - Past Surgical History Surgical History: , hysterectomy, other (Shoulder surgery, left hemiarthroplasty.) - Social History Smoking Status: Never smoker Smokeless Tobacco Status: No Alcohol use: none Drug use: none - Family History Mother Hx Family Cardiac Disorders: Yes (Hypertension) Hx Family Endocrine Disorder: Yes - Gastrointestinal Gastrointestinal: Present: melena. Absent: abdominal pain, change in bowel habits, coffee ground emesis, constipation, diarrhea, hematemesis, hematochezia , nausea, vomiting - Constitutional Constitutional: no anorexia, no fatigue, no fever(s) - EENT Eyes: as per HPI Nose, mouth and throat: Absent: dysphagia - Cardiovascular Cardiovascular ROS: Absent: chest pain, irregular heart rhythm, palpitations - Respiratory Respiratory IM: Present: cough. Absent: dyspnea, hemoptysis, wheezing - Genitourinary Genitourinary: Absent: change in color, Urinary frequency - Neurological ROS Neurological GI: Absent: dizziness, frequent falls, weakness - Hematologic/Lymphatic Hematologic/Lymphatic pediatric: Present: easy bleeding - Integumentary Integumentary GI: Absent: jaundice, pruritis - Constitutional Vitals: Temp Pulse Resp BP Pulse Ox 98.2 F 80 16 171/73 94 11/22/17 13:32 11/22/17 13:32 11/22/17 13:32 11/22/17 13:32 11/22/17 13:32 General appearance: Present: A&O X 3, pleasant, no acute distress - Head Head exam: Present: atraumatic - Eye Eye exam: Present: EOMI, sclera anicteric. Absent: scleral icterus - ENT ENT exam: Present: normal exam - Respiratory Respiratory exam: Present: CTAB. Absent: rales, respiratory distress, rhonchi, stridor - Cardiovascular Cardiovascular exam: Present: RRR, +S1, +S2 - GI/Abdominal GI/Abdominal exam: Present: soft, no peritoneal signs. Absent: firm, hernia, rebound, rigid, tenderness - Expanded GI/Abdominal Exam GI/Abdominal exam expanded: Absent: ascites - Extremities Exam Extremities exam: Present: warm, radial pulses palpable and symmetrical. Absent : pedal edema Additional comments: Patient's incisions on the left shoulder clean, dry, and intact. Left hip incisions c/d/i. - Neurological Exam Neurological exam: Present: CN II-XII intact - Psychiatric Psychiatric exam: Present: normal affect, normal mood - Skin Skin exam: Present: dry (Patient with extensive ecchymoses over her upper extremities and abdomen.), warm Results - Labs CBC & Chem 7: 11/22/17 05:55 11/22/17 05:55 Labs: Last Result Calcium 8.4 mg/dL (8.6-10.3) L 11/22/17 05:55 Entire Visit Hgb 7.9 g/dL (11.5-15.4) L 11/22/17 05:55 Hct 24.7 % (35.3-44.9) L 11/22/17 05:55 - Impressions Impressions Echocardiogram 11/22/17 13:57 Impressions: LVEF 65%. Mild left ventricular diastolic dysfunction. RV is not well visualized. Mild aortic regurgitation. No pulmonary hypertension by TR gradient. Findings: Study Quality * Technically challengingl due to clinical status - patient sitting up, immobilization of left side. ECG Findings * Normal sinus rhythm. Left Ventricle * LVEF 65%. * Normal LV size. * LV wall thickness measurements not well obtained. * Mild left ventricular diastolic dysfunction. Right Ventricle * RV is not well visualized. Left Atrium * Mildly dilated left atrium. Right Atrium * Right atrium is not well visualized. Aortic Valve * Aortic valve not well visualized. * No aortic stenosis. * Mild aortic regurgitation. Mitral Valve * Normal mitral valve structure. * No mitral stenosis. * Trace mitral regurgitation. * Mild mitral annular calcification Tricuspid Valve * Tricuspid valve not well visualized. * No tricuspid regurgitation. Pulmonic Valve * Pulmonic valve is not well visualized. * No pulmonic stenosis. * No pulmonic regurgitation. Pulmonary Artery * Pulmonary artery not well visualized. Aorta * Not well visualized. Pericardium * There is no pericardial effusion present. Interatrial Septum * Interatrial septum not well evaluated. IVC * The IVC is not well evaluated. Consult Discharge Plan - Plan Additional Instructions: Phase 1- External rotation and forward elevation- arm Total Hip precautions Referrals: NONE,PCP [Non-Partnered Physician] - <Almaz Guillen - Last Filed: 11/22/17 17:44> Date of Encounter: 11/22/17 Time of Encounter: 17:00 - Time Spent With Patient Total time spent is greater than 50% in coordination of care (as documented) at patient's floor/unit and/or counseling patient: GI History of Present Illness - Data of Consult Requesting Physician: Ericka Doshi MD - Consult Narrative History of present illness: Ms. Arriaga is a 82 year old female - Constitutional Vitals: Temp Pulse Resp BP Pulse Ox 98.6 F 73 16 123/52 96 11/22/17 16:02 11/22/17 16:02 11/22/17 16:02 11/22/17 16:02 11/22/17 16:02 Results - Labs CBC & Chem 7: 11/22/17 05:55 11/22/17 05:55 Labs: Last Result Calcium 8.4 mg/dL (8.6-10.3) L 11/22/17 05:55 Entire Visit Hgb 7.9 g/dL (11.5-15.4) L 11/22/17 05:55 Hct 24.7 % (35.3-44.9) L 11/22/17 05:55 - Impressions Impressions Echocardiogram 11/22/17 13:57 Impressions: LVEF 65%. Mild left ventricular diastolic dysfunction. RV is not well visualized. Mild aortic regurgitation. No pulmonary hypertension by TR gradient. Findings: Study Quality * Technically challengingl due to clinical status - patient sitting up, immobilization of left side. ECG Findings * Normal sinus rhythm. Left Ventricle * LVEF 65%. * Normal LV size. * LV wall thickness measurements not well obtained. * Mild left ventricular diastolic dysfunction. Right Ventricle * RV is not well visualized. Left Atrium * Mildly dilated left atrium. Right Atrium * Right atrium is not well visualized. Aortic Valve * Aortic valve not well visualized. * No aortic stenosis. * Mild aortic regurgitation. Mitral Valve * Normal mitral valve structure. * No mitral stenosis. * Trace mitral regurgitation. * Mild mitral annular calcification Tricuspid Valve * Tricuspid valve not well visualized. * No tricuspid regurgitation. Pulmonic Valve * Pulmonic valve is not well visualized. * No pulmonic stenosis. * No pulmonic regurgitation. Pulmonary Artery * Pulmonary artery not well visualized. Aorta * Not well visualized. Pericardium * There is no pericardial effusion present. Interatrial Septum * Interatrial septum not well evaluated. IVC * The IVC is not well evaluated. - Attending Attestation I have personally performed a face to face evaluation on this patient. I have reviewed and agree with the care plan. History and Exam by me shows: Patient with anemia and black stool. No epigastric pain. Recommendation: EGD in the morning. Meanwhile follow H&H
[2017-11-22 20:11] LABS: Hematocrit 29.6 % (35.3-44.9); Hemoglobin 9.7 g/dL (11.5-15.4)
[2017-11-22] MEDS: 0.9 % Sodium Chloride 250 ML IVC SCH (23:44)
[2017-11-23] MEDS: 0.9 % Sodium Chloride 250 ML IVC SCH (04:18)
[2017-11-23] MEDS: Pantoprazole 40 MG VIAL IVP SCH ×2 (05:37→17:07)
[2017-11-23 07:40] LABS: Hematocrit 28.3 % (35.3-44.9); Hemoglobin 9.2 g/dL (11.5-15.4); Mean Corpuscular HGB Conc 32.5 g/dL (31.6-35.5); Mean Corpuscular Hemoglobin 33.1 pg (28.0-33.3); Mean Corpuscular Volume 101.8 fL (83.0-100.0); Mean Platelet Volume 8.9 fL (9.4-12.4); Platelet Count 286 K/mcL (140-400); Red Blood Count 2.78 M/mcL (3.82-4.97); Red Cell Distribution Width 14.3 % (11.5-14.5)
[2017-11-23 07:54] LABS: BUN/Creatinine Ratio 23 (6-26); Blood Urea Nitrogen 18 mg/dL (8-23); Calcium 8.4 mg/dL (8.6-10.3); Carbon Dioxide 28 mEq/L (23-29); Chloride 100 mEq/L (98-107); Glucose 95 mg/dL (70-105); Osmolality,Calculated 280 (280-300); Potassium 3.8 mEq/L (3.5-5.1); Sodium 134 mEq/L (136-145); eGFR For African Americans > 60 (> 60); eGFR For Non-African Americans > 60 (> 60)
[2017-11-23] MEDS ORDERED: 0.9 % Sodium Chloride 1,000 ML ONE (07:56)
--- NOTE | 2017-11-23 09:12 | Gastroenterology Progress Note ---
<SammycaitieTammie - Last Filed: 11/23/17 09:10> Date of Encounter: 11/23/17 Time of Encounter: 09:10 - Assessment and plan (1) LGI bleed Status: Acute Assessment and plan: 82 yo female PMHX Rheumatoid arthritis, HTN, and osteopenia here for left hemiarthroplasty s/p femoral neck fracture. Recent shoulder surgery. Patient with gradual decline in Hgb, development of melena/dark stool two days ago. -Last colonoscopy approximately 10 years ago. -Takes daily aspirin, no other anticoagulation. -Agree with PPI -Hold heparin; monitor H&H -NPO -transfusion per primary team (s/p 1 unit PRBCs). 11/23/2017- Hgb stable (9.2 today, 7.8 yesterday) -EGD today. - Time Spent With Patient Total time spent is greater than 50% in coordination of care (as documented) at patient's floor/unit and/or counseling patient: - Subjective Interval history: Patient resting comfortably this morning. She denies abdominal pain, chest pain , shortness of breath, weakness, or fatigue. Denies any bowel movement today. No nausea or vomitting. No signs of active bleeding. - Constitutional Vitals: Temp Pulse Resp BP Pulse Ox 98.6 F 70 16 146/76 93 11/23/17 06:43 11/23/17 06:43 11/23/17 06:43 11/23/17 06:43 11/23/17 06:43 General appearance: Present: A&O X 3, pleasant, no acute distress - Head Head exam: Present: atraumatic, normocephalic - Eye Eye exam: Present: normal appearance, sclera anicteric - Respiratory Respiratory exam: Present: CTAB - GI/Abdominal GI/Abdominal exam: Present: normal bowel sounds, soft, no peritoneal signs - Extremities Exam Extremities exam: Present: warm - Neurological Exam Neurological exam: Present: no focal deficits - Skin Skin exam: Present: dry, intact, normal color, warm - Other Additional findings: Patient incisions on left shoulder and left hip c/d/i. Left sided shoulder sling in place. Results - Labs CBC & Chem 7: 11/23/17 07:02 11/23/17 07:02 Labs: Last Result Calcium 8.4 mg/dL (8.6-10.3) L 11/23/17 07:02 Entire Visit Hgb 9.2 g/dL (11.5-15.4) L 11/23/17 07:02 Hct 28.3 % (35.3-44.9) L 11/23/17 07:02 - Impressions Impressions Echocardiogram 11/22/17 13:57 Impressions: LVEF 65%. Mild left ventricular diastolic dysfunction. RV is not well visualized. Mild aortic regurgitation. No pulmonary hypertension by TR gradient. Findings: Study Quality * Technically challengingl due to clinical status - patient sitting up, immobilization of left side. ECG Findings * Normal sinus rhythm. Left Ventricle * LVEF 65%. * Normal LV size. * LV wall thickness measurements not well obtained. * Mild left ventricular diastolic dysfunction. Right Ventricle * RV is not well visualized. Left Atrium * Mildly dilated left atrium. Right Atrium * Right atrium is not well visualized. Aortic Valve * Aortic valve not well visualized. * No aortic stenosis. * Mild aortic regurgitation. Mitral Valve * Normal mitral valve structure. * No mitral stenosis. * Trace mitral regurgitation. * Mild mitral annular calcification Tricuspid Valve * Tricuspid valve not well visualized. * No tricuspid regurgitation. Pulmonic Valve * Pulmonic valve is not well visualized. * No pulmonic stenosis. * No pulmonic regurgitation. Pulmonary Artery * Pulmonary artery not well visualized. Aorta * Not well visualized. Pericardium * There is no pericardial effusion present. Interatrial Septum * Interatrial septum not well evaluated. IVC * The IVC is not well evaluated. - VTE Documentation of Mechanical Device: Venous foot pump, device Consult Discharge Plan - Plan Additional Instructions: Phase 1- External rotation and forward elevation- arm Total Hip precautions Please return to emergency department if worsening pain in shoulder or leg, development of blood in stool or black/tarry stools, development of significant fatigue or weakness, development of chest pain or shortness of breath. Take all medications as prescribed: Percocet for pain on an as-needed basis up to 4 times a day Levaquin 500 mg by mouth daily for 5 days Aspirin EC 325 mg by mouth daily for 2 weeks Obtain Hemoglobin in 1 week Please follow-up with orthopedic surgery in 2-3 weeks Please follow-up with her PCP in 1-2 weeks Referrals: NONE,PCP [Non-Partnered Physician] - <Zeus García - Last Filed: 11/29/17 12:50> Date of Encounter: 11/23/17 - Time Spent With Patient Total time spent is greater than 50% in coordination of care (as documented) at patient's floor/unit and/or counseling patient: - Constitutional Vitals: Temp Pulse Resp BP Pulse Ox 98.6 F 78 16 134/80 98 11/25/17 10:51 11/25/17 10:51 11/25/17 10:51 11/25/17 10:51 11/25/17 10:51 Results - Labs CBC & Chem 7: 11/25/17 06:26 11/25/17 06:26 Labs: Last Result Calcium 8.9 mg/dL (8.6-10.3) 11/25/17 06:26 Vitamin B12 1174 pg/mL (250-1100) H 11/23/17 09:29 Folate 20.7 ng/mL (3.0-16.0) H 11/23/17 09:29 Entire Visit Hgb 9.5 g/dL (11.5-15.4) L 11/25/17 06:26 Hct 29.5 % (35.3-44.9) L 11/25/17 06:26 Folate 20.7 ng/mL (3.0-16.0) H 11/23/17 09:29 - Attending Attestation Plan EGD and colonoscopy on this very pleasant lady with longstanding RA. I examined this patient and my medical decision-making was reviewed with the Resident Physician. I agree with the documented findings, disposition and treatment plan as described except to the extent set forth below.
[2017-11-23] MEDS: Cholecalciferol (D-3) 1,000 UNIT TABLET PO SCH (09:42)
[2017-11-23] MEDS: Losartan/HCTZ 50-12.5 TABLET PO SCH (09:42)
[2017-11-23] MEDS: predniSONE 5 MG TABLET PO SCH (09:42)
[2017-11-23] MEDS ORDERED: 0.9 % Sodium Chloride 1,000 ML IVC SCH (09:47)
[2017-11-23 10:36] LABS: Folate 20.7 ng/mL (3.0-16.0)
[2017-11-23] MEDS: *HR* HYDROcodone/Acet 5/325 mg TABLET PO PRN (11:28)
[2017-11-23] MEDS ORDERED: *HR* Propofol 200 MG/20 ML VIAL IVP ONE (13:01)
[2017-11-23] MEDS ORDERED: Lidocaine -MPF 2% 2 ML VIAL ONE (13:02)
--- NOTE | 2017-11-23 13:15 | Anesthesia Evaluation PreOp ---
Date of Encounter: 11/23/17 Time of Encounter: 13:10 - Past History Planned Operation: EGD Cardiac History: HTN Pulmonary History: COPD (History of pulmonary fibrosis, uses inhalers sporadically at home, no home 02.) NUCLEAR MEDICINE TECH History: Other (reportedly hx of dementia, but patient alert, competent for me.) Other Medical History: Renal (mild renal insufficiency), Other (Hx of rheumatoid arthritis with intermittent chronic steroid use.) Anesthesia History: No Prior Anesthetic Complications, Past Anesthesia ( Multiple prior surgeries, just underwent L hip hemiarthroplasty without anesthetic complication.) Alcohol Use: none Drug use: none Medications and Allergies Alendronate Sodium 70 mg PO SA 06/22/15 [History] Calcium Carbonate/Vitamin D3 [Calcium 600 + D Tablet] 1 each PO DAILY 06/22/15 [ History] Hydroxychloroquine [Plaquenuil] 200 mg PO DAILY 06/22/15 [History] Methotrexate [Otrexup] 7.5 mg PO SA 06/22/15 [History] PredniSONE 5 mg PO DAILY 06/22/15 [History] Ranitidine HCl [Zantac] 150 mg PO DAILY 06/22/15 [History] Calcium/Vit B12/FA/Pyridoxine [Folic Acid-Vit B6-Vit B12 Tab] 1 each PO DAILY [History] Losartan/Hydrochlorothiazide [Hyzaar 100-25 Tablet] 1 each PO DAILY 12/27/15 [ History] Oxycodone HCl/Acetaminophen [Percocet 5-325 mg Tablet] 1 tab PO Q6H PRN [History] 3 Allergy/AdvReac Type Severity Reaction Status Date / Time No Known Allergies Allergy Verified 11/09/17 11:38 - Meds/Allergy Pre-op Review Medications Reviewed: Yes Allergies Reviewed: Yes Beta Blockers on Current Med List: No Anesthesia Results - Labs 11/23/17 07:02 11/23/17 07:02 - Imaging EKG: report reviewed (sinus rhythm) Additional studies: ECHO 65% Anesthesia Exam Selected Entries 11/23/17 10:57 Temperature 98.3 F Pulse Rate 74 Respiratory Rate 16 Blood Pressure 167/93 O2 Sat by Pulse Oximetry 96 Weight: 56 kg NPO (# of Hours): over 8 hours - HEENT Mallampati: II Teeth: Missing Denture Type: Upper: Partial, Lower: Partial Oral Opening: Greater than 3 - Cardiac Rhythm: Regular Murmur: None - Pulmonary Breath Sounds: bilateral Clear Respiratory Effort: Symmetrical Anesthesia Assess/Plan ASA Score: 3 Modified Christian Scale for Level of Consciousness: Cooperative, oriented, and tranquil Anesthetic Plan: MAC Monitoring Plan: Standard Monitors (Discussed MAC anesthesia, agreed to proceed. )
[2017-11-23] MEDS ORDERED: Ondansetron 4 MG/2 ML VIAL ONE (14:19)
[2017-11-23] MEDS ORDERED: Ondansetron 4 MG/2 ML VIAL IVP PRN ×2 (14:20→21:33)
[2017-11-23] MEDS ORDERED: Levofloxacin 500 MG/100 ML 500 MG/100 ML BAG IVPB ONE (16:00)
[2017-11-23] MEDS ORDERED: SODIUM CHLORIDE/NAHCO3/KCL/PEG 4,000 ML SOLN.RECON PO ONE (16:30)
--- NOTE | 2017-11-23 16:35 | Internal Med Progress Note ---
<Robb Rodriguez - Last Filed: 11/23/17 16:32> Date of Encounter: 11/23/17 Time of Encounter: 08:45 - Assessment and plan (1) Acute blood loss anemia Current Visit: Yes Status: Acute Assessment and plan: Due to possible upper GI bleed combined with postsurgical blood loss Patient was also on heparin for prophylaxis, now stopped Patient was transfused 1 unit of blood Patient continues to report dark-colored stools Continue IV Protonix twice a day GI consulted and plan for EGD today Continue gentle IV fluids Continue to monitor CBC (2) UTI (urinary tract infection) Current Visit: Yes Status: Acute Assessment and plan: Patient does report some polyuria UA suggestive of infection Urine culture shows pansensitive Pseudomonas Stop ceftriaxone and start Levaquin Qualifiers: Urinary tract infection type: acute cystitis Hematuria presence: with hematuria Qualified Code(s): N30.01 - Acute cystitis with hematuria (3) Bronchitis Current Visit: Yes Status: Acute Assessment and plan: Patient with likely bronchitis and congestion Patient had been receiving Rocephin Echocardiogram shows EF 65% with mild left a co-diastolic dysfunction Ceftriaxone switched to Levaquin today (4) Essential hypertension Current Visit: Yes Status: Chronic Assessment and plan: Stable Continue home losartan and hydrochlorothiazide (5) Femoral neck fracture Current Visit: Yes Status: Acute Assessment and plan: Left femoral neck fracture status post hemiarthroplasty Orthopedic surgery following and appreciate recommendations for continued management/care Continue pain control with oxycodone Qualifiers: Encounter type: initial encounter Fracture type: closed Laterality: left Qualified Code(s): S72.002A - Fracture of unspecified part of neck of left femur, initial encounter for closed fracture (6) Osteoporosis Current Visit: Yes Status: Acute Assessment and plan: Continue Aledronate as outpatient Calcium and Vitamin D supplements Qualifiers: Osteoporosis type: age-related Presence of current pathological fracture: unspecified Qualified Code(s): M81.0 - Age-related osteoporosis without current pathological fracture (7) Rheumatoid arthritis Current Visit: Yes Status: Chronic Assessment and plan: Currently stable Continue prednisone and Plaquenil Continue to hold methotrexate due to presence of UTI Qualifiers: Rheumatoid arthritis location: multiple sites Rheumatoid factor presence: unspecified presence Qualified Code(s): M06.9 - Rheumatoid arthritis, unspecified - Subjective Interval history: Patient reports having continued dark stools. She states she has an on and off cough that is chronic. Denies having fever/chills. Reports pain in her left hip when she tries to move it. - Constitutional Vitals: Temp Pulse Resp BP Pulse Ox 97.8 F 80 16 147/75 93 11/23/17 14:34 11/23/17 14:34 11/23/17 14:34 11/23/17 14:34 11/23/17 14:34 General appearance: Present: cooperative, A&O X 3, no acute distress, answers questions appropriately Exam: General: Cooperative, pleasant, no acute distress, alert and oriented 3, answers questions appropriately HEENT: Normocephalic, atraumatic, Conjunctiva pink, sclera anicteric, oral mucosa moist Respiratory: No accessory muscle usage, clear to auscultation bilaterally, no wheezes/rhonchi/rales appreciated Cardiovascular: Regular rate and rhythm, S1 and S2 present, no murmurs/rubs/ gallops/clicks appreciated GI/abdominal: Nondistended, nontender, soft, normal bowel sounds, no peritoneal signs Extremities: No calf tenderness, no pedal edema appreciated, warm, lower extremity pulses palpable and symmetrical Neurological: Alert and oriented 3, no facial droop, no focal deficits Skin: Dry, intact, normal color Internal Medicine: Result - Labs CBC & Chem 7: 11/23/17 07:02 11/23/17 07:02 Labs: Short CBC 11/22/17 11/23/17 Range/Units 19:50 07:02 WBC 8.6 (4.3-11.1) K/mcL Hgb 9.7 L D 9.2 L (11.5-15.4) g/dL Hct 29.6 L 28.3 L (35.3-44.9) % Plt Count 286 (140-400) K/mcL BMP 11/23/17 07:02 Sodium 134 L Potassium 3.8 Chloride 100 Carbon Dioxide 28 BUN 18 Creatinine 0.80 Glucose 95 Calcium 8.4 L - VTE Documentation of Mechanical Device: Venous foot pump, device Consult Discharge Plan - Plan Additional Instructions: Phase 1- External rotation and forward elevation- arm Total Hip precautions Referrals: NONE,PCP [Non-Partnered Physician] - <Min Lewis - Last Filed: 11/24/17 08:16> Date of Encounter: 11/23/17 - Constitutional Vitals: Temp Pulse Resp BP Pulse Ox 98.6 F 74 15 151/93 97 11/24/17 06:42 11/24/17 06:42 11/24/17 06:42 11/24/17 06:42 11/24/17 06:42 Internal Medicine: Result - Labs CBC & Chem 7: 11/23/17 07:02 11/23/17 07:02 - Attending Attestation This is a late entry note for date of service 11/23/2017 I performed a [id number] diagnostic evaluation of this patient and my medical decision-making was reviewed with the Resident Physician, Dr Rodney Rodriguez. I agree with the documented findings, disposition and treatment plan as described except to the extent set forth below. Patient reports mild left shoulder pain. She is in no acute distress awake alert oriented. Left upper extremity immobilized in a sling. Left shoulder surgical incision covered with dressing clean dry and intact. Heart exam reveals regular rate and rhythm S1-S2 with no murmurs. Plan: EGD today for evaluation of GI bleed. Monitor H&H. Continue postoperative care. Min Lewis MD
[2017-11-23] MEDS ORDERED: Cefepime HCl 1,000 MG in D5% in Water (Mini-Bag+) 100 ML IVPB SCH (18:00)
[2017-11-24] MEDS: Pantoprazole 40 MG VIAL IVP SCH ×2 (06:48→17:48)
[2017-11-24] MEDS: Losartan/HCTZ 50-12.5 TABLET PO SCH (09:05)
--- NOTE | 2017-11-24 09:15 | Internal Med Progress Note ---
<Robb Rodriguez - Last Filed: 11/24/17 09:12> Date of Encounter: 11/24/17 Time of Encounter: 08:45 - Assessment and plan (1) Acute blood loss anemia Current Visit: Yes Status: Acute Assessment and plan: Due to possible upper GI bleed combined with postsurgical blood loss Patient was also on heparin for prophylaxis, now stopped Patient was transfused 1 unit of blood She does report having normal colored stools today, but is currently undergoing bowel prep EGD showed esophagitis, gastritis, and gastroparesis without signs of bleedin GI plans for colonoscopy Continue IV Protonix twice a day GI plans for colonoscopy Continue gentle IV fluids Continue to monitor CBC (2) UTI (urinary tract infection) Current Visit: Yes Status: Acute Assessment and plan: Patient does report some polyuria UA suggestive of infection Urine culture shows pansensitive Pseudomonas Stop ceftriaxone and start Levaquin Qualifiers: Urinary tract infection type: acute cystitis Hematuria presence: with hematuria Qualified Code(s): N30.01 - Acute cystitis with hematuria (3) Bronchitis Current Visit: Yes Status: Acute Assessment and plan: Patient had possible bronchitis and congestion Patient had been receiving Rocephin Echocardiogram shows EF 65% with mild left ventricular diastolic dysfunction Ceftriaxone switched to Levaquin today (4) Essential hypertension Current Visit: Yes Status: Chronic Assessment and plan: Stable Continue home losartan and hydrochlorothiazide (5) Femoral neck fracture Current Visit: Yes Status: Acute Assessment and plan: Left femoral neck fracture status post hemiarthroplasty Orthopedic surgery following and appreciate recommendations for continued management/care Continue pain control with oxycodone Qualifiers: Encounter type: initial encounter Fracture type: closed Laterality: left Qualified Code(s): S72.002A - Fracture of unspecified part of neck of left femur, initial encounter for closed fracture (6) Osteoporosis Current Visit: Yes Status: Acute Assessment and plan: Continue Aledronate as outpatient Calcium and Vitamin D supplements Qualifiers: Osteoporosis type: age-related Presence of current pathological fracture: unspecified Qualified Code(s): M81.0 - Age-related osteoporosis without current pathological fracture (7) Rheumatoid arthritis Current Visit: Yes Status: Chronic Assessment and plan: Currently stable Continue prednisone and Plaquenil Continue to hold methotrexate due to presence of UTI Qualifiers: Rheumatoid arthritis location: multiple sites Rheumatoid factor presence: unspecified presence Qualified Code(s): M06.9 - Rheumatoid arthritis, unspecified (8) DVT prophylaxis Current Visit: Yes Status: Acute Assessment and plan: Patient is status post left hip arthroplasty Concern for GI bleed, so holding chemical anticoagulation We will start intermittent pneumatic compression devices - Subjective Interval history: Patient reports doing well this morning. She reports being hungry as she is only had a little bit of clear liquids the last couple days. She denies having a discomfort other than her hip when she tries to move. She is currently being bowel prep and cannot say whether or not she has diarrhea, though she has not noticed any additional dark/tarry stools. She denies fever/chills, denies shortness of breath, denies chest pain. - Constitutional Vitals: Temp Pulse Resp BP Pulse Ox 98.6 F 74 15 151/93 97 11/24/17 06:42 11/24/17 06:42 11/24/17 06:42 11/24/17 06:42 11/24/17 06:42 General appearance: Present: cooperative, A&O X 3, no acute distress, answers questions appropriately Exam: General: Cooperative, pleasant, no acute distress, alert and oriented 3, answers questions appropriately HEENT: Normocephalic, atraumatic, Conjunctiva pink, sclera anicteric, oral mucosa moist Respiratory: No accessory muscle usage, clear to auscultation bilaterally, no wheezes/rhonchi/rales appreciated Cardiovascular: Regular rate and rhythm, S1 and S2 present, no murmurs/rubs/ gallops/clicks appreciated GI/abdominal: Nondistended, nontender, soft, normal bowel sounds, no peritoneal signs Extremities: No calf tenderness, no pedal edema appreciated, warm, lower extremity pulses palpable and symmetrical, honeycomb dressing in place over her left shoulder and left hip appear clean and dry Neurological: Alert and oriented 3, no facial droop, no focal deficits Skin: Dry, intact, normal color Internal Medicine: Result - Labs CBC & Chem 7: 11/23/17 07:02 11/23/17 07:02 - VTE Documentation of Mechanical Device: Venous foot pump, device Consult Discharge Plan - Plan Additional Instructions: Phase 1- External rotation and forward elevation- arm Total Hip precautions Referrals: NONE,PCP [Non-Partnered Physician] - <Min Lewis - Last Filed: 11/24/17 15:22> Date of Encounter: 11/24/17 - Constitutional Vitals: Temp Pulse Resp BP Pulse Ox 98.6 F 65 15 151/85 97 11/24/17 12:14 11/24/17 12:14 11/24/17 12:14 11/24/17 12:14 11/24/17 12:14 Internal Medicine: Result - Labs CBC & Chem 7: 11/24/17 08:45 11/23/17 07:02 Labs: Short CBC 11/24/17 Range/Units 08:45 WBC 8.7 (4.3-11.1) K/mcL Hgb 9.6 L (11.5-15.4) g/dL Hct 29.8 L (35.3-44.9) % Plt Count 276 (140-400) K/mcL Neutrophils # 6.4 (1.6-8.9) K/mcL - Attending Attestation I performed a [id number] diagnostic evaluation of this patient and my medical decision-making was reviewed with the Resident Physician, Dr Rodney Rodriguez. I agree with the documented findings, disposition and treatment plan as described except to the extent set forth below. Patient is in no acute distress. Heart is regular. Lungs are clear. There is no lower extremity edema. There is no lower extremity edema. Surgical dressings are clean dry and intact over the left shoulder and left hip. Reviewed endoscopy report. Plan for colonoscopy today. DVT prophylaxis with SCDs. Avoid all anticoagulation due to suspected active GI bleed. Min Lewis MD
[2017-11-24 09:50] LABS: Basophils % 0.2 %; Eosinophils # 0.2 K/mcL (0.0-0.6); Eosinophils % 2.4 %; Hematocrit 29.8 % (35.3-44.9); Hemoglobin 9.6 g/dL (11.5-15.4); Immature Granulocytes % 2.2 % (0-4); Lymphocytes % 11.4 %; Mean Corpuscular HGB Conc 32.2 g/dL (31.6-35.5); Mean Corpuscular Volume 102.4 fL (83.0-100.0); Mean Platelet Volume 9.2 fL (9.4-12.4); Monocytes # 0.9 K/mcL (0.0-1.3); Monocytes % 10.1 %; Neutrophils # 6.4 K/mcL (1.6-8.9); Platelet Count 276 K/mcL (140-400); Red Blood Count 2.91 M/mcL (3.82-4.97); Red Cell Distribution Width 14.3 % (11.5-14.5); Segmented Neutrophils % 73.7 %
[2017-11-24] MEDS ORDERED: *HR* Propofol 200 MG/20 ML VIAL IVP ONE ×2 (11:09→11:43)
[2017-11-24] MEDS: *HR* HYDROcodone/Acet 5/325 mg TABLET PO PRN ×2 (11:12→18:42)
--- NOTE | 2017-11-24 12:12 | Anesthesia Evaluation PreOp ---
Date of Encounter: 11/24/17 Time of Encounter: 12:09 - Past History Planned Operation: Colonoscopy Cardiac History: HTN Pulmonary History: COPD (History of pulmonary fibrosis, uses inhalers sporadically at home, no home 02.) MARKETING SERVICES SPECIALIST History: Other (eportedly hx of dementia, but patient alert, competent for me.) Other Medical History: Renal (renal insufficiency), GERD, Other (Hx of rheumatoid arthritis with intermittent chronic steroid use) Anesthesia History: No Prior Anesthetic Complications, Past Anesthesia Alcohol Use: none Drug use: none Medications and Allergies Alendronate Sodium 70 mg PO SA 06/22/15 [History] Calcium Carbonate/Vitamin D3 [Calcium 600 + D Tablet] 1 each PO DAILY 06/22/15 [ History] Hydroxychloroquine [Plaquenuil] 200 mg PO DAILY 06/22/15 [History] Methotrexate [Otrexup] 7.5 mg PO SA 06/22/15 [History] PredniSONE 5 mg PO DAILY 06/22/15 [History] Ranitidine HCl [Zantac] 150 mg PO DAILY 06/22/15 [History] Calcium/Vit B12/FA/Pyridoxine [Folic Acid-Vit B6-Vit B12 Tab] 1 each PO DAILY [History] Losartan/Hydrochlorothiazide [Hyzaar 100-25 Tablet] 1 each PO DAILY 12/27/15 [ History] Oxycodone HCl/Acetaminophen [Percocet 5-325 mg Tablet] 1 tab PO Q6H PRN [History] 3 Allergy/AdvReac Type Severity Reaction Status Date / Time No Known Allergies Allergy Verified 11/09/17 11:38 - Meds/Allergy Pre-op Review Medications Reviewed: Yes Allergies Reviewed: Yes Beta Blockers on Current Med List: No Anesthesia Results - Labs 11/24/17 08:45 11/23/17 07:02 - Imaging EKG: report reviewed (11/18/2017 SINUS RHYTHM) Additional studies: 11/22/2017 Echo Impressions: LVEF 65%. Mild left ventricular diastolic dysfunction. RV is not well visualized. Mild aortic regurgitation. No pulmonary hypertension by TR gradient. Anesthesia Exam Vital Signs/O2 Sat, Most Current Temp Pulse Resp BP Pulse Ox 98.6 F 78 15 109/64 97 11/24/17 11:42 11/24/17 11:42 11/24/17 11:42 11/24/17 11:42 11/24/17 11:42 Height: 5'2''/1.57 m Weight: 122 lb/55.4 kg NPO (# of Hours): 8 Pain Scale: 0 Pain Scale Used: Numeric (1 - 10) - HEENT Pupil (Motor): EOMI Mallampati: II Teeth: Normal, Missing Denture Type: Upper: Partial, Lower: Partial Oral Opening: Greater than 3 - MARKETING SERVICES SPECIALIST LOC: Oriented MARKETING SERVICES SPECIALIST Motor: Normal RUE, Normal LUE, Normal RLE, Normal LLE, Normal Face MARKETING SERVICES SPECIALIST Sensory: Normal: RUE, RLE, LLE, Face, Deficit: LUE - Cardiac Rhythm: Regular Murmur: None - Pulmonary Breath Sounds: bilateral Clear Respiratory Effort: Symmetrical Anesthesia Assess/Plan ASA Score: 3 Modified Eugene Scale for Level of Consciousness: Cooperative, oriented, and tranquil Anesthetic Plan: MAC Monitoring Plan: Standard Monitors
--- NOTE | 2017-11-24 14:09 | Anesthesia Evaluation Post Op ---
Date of Encounter: 11/24/17 Time of Encounter: 13:15 - Vital Signs Vital Signs: Vital Signs/O2 Sat/Glucose, Most Recent Temp Pulse Resp BP Pulse Ox 98.6 F 65 15 151/85 97 11/24/17 12:14 11/24/17 12:14 11/24/17 12:14 11/24/17 12:14 11/24/17 12:14 - Lungs Lungs: Clear Ascult./Percussion - Airway Airway: Non-obstructed - Cardiovascular Regular Rate, Baseline Rhythm - Mental Status Mental Status: Alert & Oriented, Answers Appropriately - Pain Pain Scale: 0 Pain Scale used: Numeric (1 - 10) - Nausea Vomiting Nausea Vomiting: Not Present - Hydration Hydration: NPO Notes: 11/24/17 14:09 naac - Discharge PostOp Status: Transfer Patient to floor
[2017-11-24] MEDS ORDERED: Levofloxacin 250 MG/50 ML 250 MG/50 ML BAG IVPB SCH (16:00)
[2017-11-24] MEDS: Cholecalciferol (D-3) 1,000 UNIT TABLET PO SCH (17:44)
[2017-11-24] MEDS: predniSONE 5 MG TABLET PO SCH (17:44)
[2017-11-25] MEDS: Pantoprazole 40 MG VIAL IVP SCH (05:25)
[2017-11-25] MEDS: *HR* HYDROcodone/Acet 5/325 mg TABLET PO PRN ×2 (05:31→13:20)
[2017-11-25 06:55] LABS: Hematocrit 29.5 % (35.3-44.9); Hemoglobin 9.5 g/dL (11.5-15.4)
[2017-11-25 07:04] LABS: BUN/Creatinine Ratio 16 (6-26); Blood Urea Nitrogen 14 mg/dL (8-23); Calcium 8.9 mg/dL (8.6-10.3); Carbon Dioxide 28 mEq/L (23-29); Chloride 102 mEq/L (98-107); Glucose 95 mg/dL (70-105); Osmolality,Calculated 280 (280-300); Potassium 3.9 mEq/L (3.5-5.1); Sodium 135 mEq/L (136-145); eGFR For African Americans > 60 (> 60); eGFR For Non-African Americans > 60 (> 60)
[2017-11-25] MEDS: predniSONE 5 MG TABLET PO SCH (07:21)
[2017-11-25] MEDS: Losartan/HCTZ 50-12.5 TABLET PO SCH (07:22)
[2017-11-25] MEDS: Cholecalciferol (D-3) 1,000 UNIT TABLET PO SCH (07:22)
--- NOTE | 2017-11-25 07:53 | Discharge Summary ---
<Robb Rodriguez - Last Filed: 11/25/17 13:26> - NOTES TO OUTPATIENT PROVIDER Notes to Outpatient Provider: Patient will need to be monitored for a little bit to make sure that there is no additional drop in her hemoglobin. She will need addtional rehab given the recent fractures of her humerus and femur that have been surgically reparied/replaced. Orders not resulted at time of discharge: Pending orders 11/19/17 XR fluoroscopy <1 hr [XR] Routine 11/24/17 13:06 Surgical Pathology [PTH] Routine Date of Encounter: 11/25/17 Time of Encounter: 07:25 - Discharge Diagnosis (1) Femoral neck fracture Priority: Primary Status: Acute Qualifiers: Encounter type: initial encounter Fracture type: closed Laterality: left Qualified Code(s): S72.002A - Fracture of unspecified part of neck of left femur, initial encounter for closed fracture (2) Acute blood loss anemia Priority: Primary Status: Suspected (3) UTI (urinary tract infection) Priority: Primary Status: Acute Qualifiers: Urinary tract infection type: acute cystitis Hematuria presence: with hematuria Qualified Code(s): N30.01 - Acute cystitis with hematuria (4) Bronchitis Priority: Primary Status: Ruled-out (5) Essential hypertension Priority: Primary Status: Chronic (6) Osteoporosis Priority: Primary Status: Chronic Qualifiers: Osteoporosis type: age-related Presence of current pathological fracture: unspecified Qualified Code(s): M81.0 - Age-related osteoporosis without current pathological fracture (7) Rheumatoid arthritis Priority: Primary Status: Chronic Qualifiers: Rheumatoid arthritis location: multiple sites Rheumatoid factor presence: unspecified presence Qualified Code(s): M06.9 - Rheumatoid arthritis, unspecified (8) DVT prophylaxis Priority: Secondary Status: Resolved Hospital course: Ms. Arriaga is a 82 year old female with medical history of hypertension, osteoporosis, rheumatoid arthritis, and recent total shoulder ORIF one week prior to presentation who presented to [facility] on 11/18/17 having suffered a fall. At that time she noticed a pop and had significant pain. She is found to have an acute an acute left femoral neck fracture. She underwent left hip arthroplasty on 11/19/17. Following the procedure on 11/21/17 she began developing a little bit of a cough and polyuria, she was placed on ceftriaxone and urinalysis was obtained. After final results of the urine culture showed pansensitive Pseudomonas aeruginosa, she was started on levaquin on 11/23/17. On 11/22/17 concerns for acute blood loss anemia develop as patient hemoglobin continue to fall requiring transfusion of 1 unit of PRBCs and a consult to GI. Following the blood transfusion, patient hemoglobin stabilized and she underwent EGD and colonoscopy. The EGD showed esophagitis, gastritis, gastroparesis and the colonoscopy showed 2 small polyps and diverticulosis; in neither exam was the source of bleeding identified. Patient's hemoglobin remained stable and as of today she is safe/stable for discharge with continued antibiotics for 5 days, rehabilitation, and a recheck of her hemoglobin in one week. Discharge discussed with: patient, nurse - Time Spent with Patient Total time spent providing and/or coordinating discharge services: - Discharge Medications Home Medications: Alendronate Sodium 70 mg PO SA 06/22/15 [History] Calcium Carbonate/Vitamin D3 [Calcium 600 + D Tablet] 1 each PO DAILY 06/22/15 [ History] Hydroxychloroquine [Plaquenuil] 200 mg PO DAILY 06/22/15 [History] Methotrexate [Otrexup] 7.5 mg PO SA 06/22/15 [History] PredniSONE 5 mg PO DAILY 06/22/15 [History] Ranitidine HCl [Zantac] 150 mg PO DAILY 06/22/15 [History] Calcium/Vit B12/FA/Pyridoxine [Folic Acid-Vit B6-Vit B12 Tab] 1 each PO DAILY [History] Losartan/Hydrochlorothiazide [Hyzaar 100-25 Tablet] 1 each PO DAILY 12/27/15 [ History] Allergies/Adverse Reactions: 3 Allergy/AdvReac Type Severity Reaction Status Date / Time No Known Allergies Allergy Verified 11/09/17 11:38 Date of admission: 11/18/17 16:20 Primary care physician: Obie Diaz MD Consults: 11/19/17 21:19 Consult to Physical Therapy [CONS] Routine Comment: Evaluate, develop and implement POC Reason for Consult: LEFT HIP EDWARD Does patient have active BEDREST order?: No Is patient medically & hemodynamically stable?: Yes 11/19/17 21:20 Consult to Occupational Therapy [CONS] Routine Comment: Evaluate, develop and implement POC Reason for Consult: PHASE 1 FOWARD ELEVATION 120 DEGREES AND EXTERNAL ROTATION OF 20 DEGREES NO INTERNAL ROTATION Does patient have active BEDREST order?: No Is patient medically & hemodynamically stable?: Yes Consult to Desktop Administrator [CONS] Routine Reason for SW Consult: LEFT HIP EDWARD 11/22/17 10:46 Consult to Gastroenterology [CONS] Routine Consulting Provider: Gastroenterology [facility] Reason for Consult: Upper GI bleed Call Completed: Yes Discharging clinician: Robb Rodriguez Anticipated date of discharge: 11/25/17 - Constitutional Vitals: Temp Pulse Resp BP Pulse Ox 98.2 F 67 16 118/56 97 11/25/17 07:07 11/25/17 07:07 11/25/17 07:07 11/25/17 07:07 11/25/17 07:07 General appearance: Present: cooperative, A&O X 3, no acute distress, answers questions appropriately Exam: General: Cooperative, pleasant, no acute distress, alert and oriented 3, answers questions appropriately HEENT: Normocephalic, atraumatic, Conjunctiva pink, sclera anicteric, oral mucosa moist Respiratory: No accessory muscle usage, clear to auscultation bilaterally, no wheezes/rhonchi/rales appreciated Cardiovascular: Regular rate and rhythm, S1 and S2 present, no murmurs/rubs/ gallops/clicks appreciated GI/abdominal: Nondistended, nontender, soft, normal bowel sounds, no peritoneal signs Extremities: No calf tenderness, no pedal edema appreciated, warm, lower extremity pulses palpable and symmetrical, honeycomb dressing in place over her left shoulder and left hip appear clean and dry Neurological: Alert and oriented 3, no facial droop, no focal deficits Skin: Dry, intact, normal color - Patient Status Disposition: Transfer Inpatient Rehab Fac Functional capacity at discharge: uses cane/walker Overall status at discharge: patient is progressing back to baseline - Ambulatory Orders Ambulatory Orders: Hemoglobin and Hematocrit [HEME] Time Frame: 1 Week, Facility: [facility], Location: Lab - Discharge Instructions Follow Up With: NONE,PCP [Non-Partnered Physician] - Additional Instructions: Phase 1- External rotation and forward elevation- arm Total Hip precautions Please return to emergency department if worsening pain in shoulder or leg, development of blood in stool or black/tarry stools, development of significant fatigue or weakness, development of chest pain or shortness of breath. Take all medications as prescribed: Percocet for pain on an as-needed basis up to 4 times a day Levaquin 500 mg by mouth daily for 5 days Aspirin EC 325 mg by mouth daily for 2 weeks Obtain Hemoglobin in 1 week Please follow-up with orthopedic surgery in 2-3 weeks Please follow-up with her PCP in 1-2 weeks - Diet and Activity Activity: as per physical therapy, increase activity as tolerated Diet: advance to your usual diet - VTE Documentation of Mechanical Device: Venous foot pump, device <Min Lewis - Last Filed: 11/25/17 18:17> Orders not resulted at time of discharge: Pending orders 11/19/17 XR fluoroscopy <1 hr [XR] Routine Date of Encounter: 11/25/17 Hospital course: Ms. Arriaga is a 82 year old female - Time Spent with Patient Total time spent providing and/or coordinating discharge services: Date of admission: 11/18/17 16:20 Primary care physician: Obie Diaz MD Consults: 11/19/17 21:19 Consult to Physical Therapy [CONS] Routine Comment: Evaluate, develop and implement POC Reason for Consult: LEFT HIP EDWARD Does patient have active BEDREST order?: No Is patient medically & hemodynamically stable?: Yes 11/19/17 21:20 Consult to Occupational Therapy [CONS] Routine Comment: Evaluate, develop and implement POC Reason for Consult: PHASE 1 FOWARD ELEVATION 120 DEGREES AND EXTERNAL ROTATION OF 20 DEGREES NO INTERNAL ROTATION Does patient have active BEDREST order?: No Is patient medically & hemodynamically stable?: Yes Consult to Desktop Administrator [CONS] Routine Reason for SW Consult: LEFT HIP EDWARD 11/22/17 10:46 Consult to Gastroenterology [CONS] Routine Consulting Provider: Gastroenterology N[facility]ia Reason for Consult: Upper GI bleed Call Completed: Yes - Constitutional Vitals: Temp Pulse Resp BP Pulse Ox 98.6 F 78 16 134/80 98 11/25/17 10:51 11/25/17 10:51 11/25/17 10:51 11/25/17 10:51 11/25/17 10:51 - Attending Attestation I performed a [id number] diagnostic evaluation of this patient and my medical decision-making was reviewed with the Resident Physician, Dr Rodney Rodriguez. I agree with the documented findings, disposition and treatment plan as described except to the extent set forth below. Patient is status post left hip hemiarthroplasty. She had workup for anemia with EGD and colonoscopy which were negative. Today she is able to participate in physical therapy she is awake alert oriented. Her hemoglobin is at baseline. She will be discharged to subacute rehabilitation. I recommend aspirin 325 mg daily for DVT prophylaxis for the next 14-21 days at the discretion of the rehabilitation physician. Min Lewis MD
[2017-11-25 10:53] VITALS: BP 134/80
== END 2017-11-25 13:24 | DRG 470 ==
LOC: SUATTDRO 16:20 → 3NENU 16:20
PROVIDERS: ADMIT Internal Medicine; ATTEND Internal Medicine

== ENCOUNTER 2019-11-24 21:13 | Inpatient (IN) ==
[2019-11-24] MEDS ORDERED: Ringers Solution, Lactated 1,000 ML IVC SCH (23:45)
[2019-11-24] MEDS ORDERED: *HR* OxyCODONE Immed Rel 5 MG TABLET PO PRN (23:52)
[2019-11-24] MEDS ORDERED: Naloxone 0.4 MG/ML INJ IVP PRN (23:52)
[2019-11-24] MEDS ORDERED: Ondansetron 4 MG/2 ML VIAL IVP PRN (23:52)
[2019-11-24] MEDS ORDERED: *HR* HYDROmorphone (PF) 1 MG/ML SYRINGE IVP PRN (23:57)
[2019-11-25] MEDS: *HR* HYDROcodone/Acet 5/325 mg TABLET PO PRN (00:13)
[2019-11-25 04:16] LABS: Basophils % 0.3 %; Eosinophils # 0.1 K/mcL (0.0-0.6); Eosinophils % 0.8 %; Hematocrit 28.9 % (35.3-44.9); Immature Granulocytes % 1.7 % (0-4); Lymphocytes # 1.2 K/mcL (0.6-4.6); Lymphocytes % 7.6 %; Mean Corpuscular HGB Conc 31.1 g/dL (31.6-35.5); Mean Corpuscular Hemoglobin 29.3 pg (28.0-33.3); Mean Corpuscular Volume 94.1 fL (83.0-100.0); Mean Platelet Volume 8.9 fL (9.4-12.4); Monocytes # 1.4 K/mcL (0.0-1.3); Monocytes % 8.6 %; Neutrophils # 12.8 K/mcL (1.6-8.9); Nucleated Red Blood Cells 0.1 /100 WBC (0); Platelet Count 406 K/mcL (140-400); Red Blood Count 3.07 M/mcL (3.82-4.97); Red Cell Distribution Width 16.7 % (11.5-14.5); White Blood Count 15.7 K/mcL (4.3-11.1)
[2019-11-25 04:33] LABS: Calcium 9.2 mg/dL (8.6-10.3); Magnesium 1.6 mg/dL (1.6-2.6); Potassium 5.1 mEq/L (3.5-5.1)
[2019-11-25] MEDS: *HR* Heparin 5,000 UNIT/ML VIAL SQ SCH ×2 (04:39→15:45)
[2019-11-25] MEDS: Acetaminophen 325 MG TABLET PO PRN ×2 (10:17→16:04)
[2019-11-25] MEDS ORDERED: Ipratropium/Albuterol Neb 3 ML IH PRN (12:59)
[2019-11-25] MEDS ORDERED: 0.9 % Sodium Chloride 1,000 ML IVC ONE (15:03)
[2019-11-25] MEDS: Azithromycin 500 MG in 0.9 % Sodium Chloride 250 ML IVPB SCH (16:02)
[2019-11-25] MEDS: cefTRIAXone 1,000 MG in Water for inj. (sterile) 10 ML IVP SCH (16:37)
[2019-11-25] MEDS ORDERED: *HR* Promethazine 25 MG/ML VIAL IVP PRN (17:49)
[2019-11-25] MEDS: 0.9 % Sodium Chloride 1,000 ML IVC SCH (18:56)
[2019-11-25] MEDS ORDERED: 0.9 % Sodium Chloride 500 ML IVC ONE (19:28)
[2019-11-26 01:11] LABS: Basophils % 0.1 %; Eosinophils # 0.1 K/mcL (0.0-0.6); Eosinophils % 0.2 %; Hematocrit 25.6 % (35.3-44.9); Hemoglobin 7.7 g/dL (11.5-15.4); Immature Granulocytes % 1.5 % (0-4); Lymphocytes # 1.3 K/mcL (0.6-4.6); Lymphocytes % 6.1 %; Mean Corpuscular HGB Conc 30.1 g/dL (31.6-35.5); Mean Corpuscular Hemoglobin 29.3 pg (28.0-33.3); Mean Corpuscular Volume 97.3 fL (83.0-100.0); Monocytes # 2.7 K/mcL (0.0-1.3); Monocytes % 12.9 %; Neutrophils # 16.2 K/mcL (1.6-8.9); Platelet Count 303 K/mcL (140-400); Red Blood Count 2.63 M/mcL (3.82-4.97); Red Cell Distribution Width 16.8 % (11.5-14.5); Segmented Neutrophils % 79.2 %; White Blood Count 20.5 K/mcL (4.3-11.1)
[2019-11-26 01:31] LABS: Calcium 8.5 mg/dL (8.6-10.3); Magnesium 1.6 mg/dL (1.6-2.6); Phosphorous 5.7 mg/dL (2.7-4.5); Potassium 5.6 mEq/L (3.5-5.1)
[2019-11-26] MEDS: *HR* HYDROcodone/Acet 5/325 mg TABLET PO PRN (02:54)
[2019-11-26] MEDS: 0.9 % Sodium Chloride 1,000 ML IVC SCH (04:23)
[2019-11-26] MEDS: *HR* Heparin 5,000 UNIT/ML VIAL SQ SCH ×2 (06:02→17:38)
[2019-11-26] MEDS: cefTRIAXone 1,000 MG in Water for inj. (sterile) 10 ML IVP SCH (08:10)
[2019-11-26] MEDS ORDERED: 0.9 % Sodium Chloride 1,000 ML IVC SCH (08:34)
[2019-11-26] MEDS ORDERED: Furosemide 40 MG TABLET PO SCH (09:00)
[2019-11-26] MEDS ORDERED: amLODIPine 5 MG TABLET PO SCH (09:00)
[2019-11-26] MEDS ORDERED: Furosemide 40 MG/4 ML VIAL IVP ONE (09:06)
[2019-11-26] MEDS ORDERED: Furosemide 40 MG/4 ML VIAL ONE (09:17)
[2019-11-26 10:03] LABS: ABG Base Excess -2 mEq/L (-2 to 3); ABG HCO3 26 mEq/L (21-27); ABG Oxygen Saturation 98 % (95-98); ABG PCO2 68 mmHg (35-45); ABG PH 7.19 pH Units (7.32-7.45); ABG PO2 125 mmHg (85-104); ABG TCO2 28 mEq/L (20-26)
[2019-11-26] MEDS: MethylPREDNISolone 40 MG/ML VIAL IVP SCH ×3 (10:27→23:46)
[2019-11-26] MEDS: *HR* OxyCODONE Immed Rel 5 MG TABLET PO PRN (10:27)
[2019-11-26] MEDS: Ipratropium/Albuterol Neb 3 ML IH SCH ×4 (11:18→23:30)
[2019-11-26] MEDS: Budesonide/Formoterol 160/4.5 1 PUFF INH IH SCH ×2 (11:18→19:55)
[2019-11-26] MEDS ORDERED: *HR* HYDROmorphone (PF) 1 MG/ML SYRINGE IVP ONE ×2 (11:48→16:00)
[2019-11-26 14:32] LABS: ABG Base Excess -1 mEq/L (-2 to 3); ABG HCO3 27 mEq/L (21-27); ABG Oxygen Saturation 81 % (95-98); ABG PCO2 68 mmHg (35-45); ABG PH 7.21 pH Units (7.32-7.45); ABG PO2 56 mmHg (85-104); ABG TCO2 29 mEq/L (20-26); Blood Gas Pressure Support 12 cm H2O
[2019-11-26] MEDS: Azithromycin 500 MG in 0.9 % Sodium Chloride 250 ML IVPB SCH (16:07)
[2019-11-26] MEDS ORDERED: Furosemide 20 MG/2 ML VIAL IVP ONE ×2 (17:34→23:38)
[2019-11-26] MEDS ORDERED: 0.9 % Sodium Chloride 250 ML ONE (18:19)
[2019-11-26] MEDS: hydrOXYzine pamoate 25 MG CAPSULE PO PRN (19:25)
[2019-11-26 19:50] LABS: ABG Base Excess -1 mEq/L (-2 to 3); ABG HCO3 27 mEq/L (21-27); ABG Oxygen Saturation 93 % (95-98); ABG PCO2 56 mmHg (35-45); ABG PH 7.28 pH Units (7.32-7.45); ABG PO2 76 mmHg (85-104); ABG TCO2 28 mEq/L (20-26)
[2019-11-27] MEDS: Ipratropium/Albuterol Neb 3 ML IH SCH ×6 (04:16→23:49)
[2019-11-27 04:17] LABS: Basophils % 0.1 %; Hematocrit 29.6 % (35.3-44.9); Hemoglobin 9.2 g/dL (11.5-15.4); Immature Granulocytes % 1.8 % (0-4); Lymphocytes # 0.5 K/mcL (0.6-4.6); Lymphocytes % 3.5 %; Mean Corpuscular HGB Conc 31.1 g/dL (31.6-35.5); Mean Corpuscular Hemoglobin 29.2 pg (28.0-33.3); Mean Platelet Volume 9.4 fL (9.4-12.4); Monocytes # 0.4 K/mcL (0.0-1.3); Neutrophils # 12.4 K/mcL (1.6-8.9); Platelet Count 303 K/mcL (140-400); Red Blood Count 3.15 M/mcL (3.82-4.97); Red Cell Distribution Width 16.6 % (11.5-14.5); Segmented Neutrophils % 91.6 %; White Blood Count 13.6 K/mcL (4.3-11.1)
[2019-11-27 04:37] LABS: Calcium 8.8 mg/dL (8.6-10.3); Magnesium 1.5 mg/dL (1.6-2.6); Phosphorous 5.2 mg/dL (2.7-4.5); Potassium 4.6 mEq/L (3.5-5.1)
[2019-11-27] MEDS: *HR* Heparin 5,000 UNIT/ML VIAL SQ SCH ×2 (05:59→17:36)
[2019-11-27] MEDS: hydrOXYzine pamoate 25 MG CAPSULE PO PRN ×2 (05:59→22:31)
[2019-11-27] MEDS: Budesonide/Formoterol 160/4.5 1 PUFF INH IH SCH ×2 (07:21→20:32)
[2019-11-27] MEDS ORDERED: Ethanol\\Acetic Acid\\Na Ace\\Ben 1,000 ML IRRIG.SOLN IR ONE (09:06)
[2019-11-27] MEDS ORDERED: Ondansetron 4 MG/2 ML VIAL IVP ONE ×2 (09:47→14:41)
[2019-11-27] MEDS ORDERED: *HR* OxyCODONE Immed Rel 5 MG TABLET PO PRN ×4 (09:47→14:41)
[2019-11-27] MEDS ORDERED: *HR* FentaNYL (PF) 100 MCG/2 ML VIAL IVP PRN ×2 (09:47→14:41)
[2019-11-27] MEDS ORDERED: *HR* Succinylcholine 200 MG/10 ML VIAL IVP ONE (11:10)
[2019-11-27] MEDS ORDERED: Dexamethasone 4 MG/ML VIAL ONE (11:10)
[2019-11-27] MEDS ORDERED: Ondansetron 4 MG/2 ML VIAL ONE (11:10)
[2019-11-27] MEDS ORDERED: Lidocaine -MPF 2% 2 ML VIAL ONE (11:10)
[2019-11-27] MEDS ORDERED: *HR* Rocuronium Bromide 50 MG/5 ML VIAL ONE (11:10)
[2019-11-27] MEDS ORDERED: *HR* FentaNYL (PF) 100 MCG/2 ML VIAL ONE (11:11)
[2019-11-27] MEDS ORDERED: *HR* PHENYLEPHRINE 1,000 MCG/10 ML SYRINGE IVP ONE ×2 (11:22→12:03)
[2019-11-27] MEDS ORDERED: EPHEDrine 50 MG/ML VIAL ONE (11:27)
[2019-11-27] MEDS: cefTRIAXone 1,000 MG in Water for inj. (sterile) 10 ML IVP SCH (11:30)
[2019-11-27] MEDS ORDERED: *HR* HYDROMORPHONE 2 MG/ML VIAL ONE (11:49)
[2019-11-27] MEDS ORDERED: Albumin Human 5% 12.5 GM/250 ML IV.SOLN ONE (12:31)
[2019-11-27] MEDS: *HR* OxyCODONE Immed Rel 5 MG TABLET PO PRN (13:47)
[2019-11-27] MEDS ORDERED: Ondansetron 4 MG/2 ML VIAL IVP PRN (14:41)
[2019-11-27] MEDS ORDERED: *HR* HYDROcodone/Acet 5/325 mg TABLET PO PRN (14:41)
[2019-11-27] MEDS ORDERED: *HR* HYDROmorphone (PF) 1 MG/ML SYRINGE IVP PRN (14:41)
[2019-11-27] MEDS ORDERED: *HR* OxyCODONE/APAP 5/325 TABLET PO PRN (14:41)
[2019-11-27] MEDS ORDERED: Acetaminophen 325 MG TABLET PO PRN (14:41)
[2019-11-27] MEDS ORDERED: Ipratropium/Albuterol Neb 3 ML IH PRN (14:41)
[2019-11-27] MEDS ORDERED: Sennosides 8.6 MG TABLET PO PRN (14:41)
[2019-11-27] MEDS ORDERED: Naloxone 0.4 MG/ML INJ IVP PRN (14:41)
[2019-11-27] MEDS ORDERED: *HR* Promethazine 25 MG/ML VIAL IVP PRN (14:41)
[2019-11-27] MEDS ORDERED: MOM Conc 10 ML UD.LIQ PO PRN (14:41)
[2019-11-27] MEDS ORDERED: Azithromycin 500 MG in 0.9 % Sodium Chloride 250 ML IVPB SCH (15:00)
[2019-11-27 15:59] LABS: Hematocrit 27.5 % (35.3-44.9); Hemoglobin 8.8 g/dL (11.5-15.4)
[2019-11-27] MEDS: Ringers Solution, Lactated 1,000 ML IVC SCH (16:24)
[2019-11-28] MEDS: Ipratropium/Albuterol Neb 3 ML IH SCH ×7 (03:18→23:52)
[2019-11-28] MEDS: Ringers Solution, Lactated 1,000 ML IVC SCH ×2 (03:55→16:14)
[2019-11-28 05:41] LABS: Basophils % 0.1 %; Hematocrit 22.8 % (35.3-44.9); Hemoglobin 7.2 g/dL (11.5-15.4); Immature Granulocytes % 1.1 % (0-4); Lymphocytes # 0.3 K/mcL (0.6-4.6); Lymphocytes % 2.4 %; Mean Corpuscular HGB Conc 31.6 g/dL (31.6-35.5); Mean Corpuscular Hemoglobin 29.8 pg (28.0-33.3); Mean Corpuscular Volume 94.2 fL (83.0-100.0); Mean Platelet Volume 9.5 fL (9.4-12.4); Monocytes # 1.4 K/mcL (0.0-1.3); Monocytes % 11.1 %; Neutrophils # 10.9 K/mcL (1.6-8.9); Platelet Count 252 K/mcL (140-400); Red Blood Count 2.42 M/mcL (3.82-4.97); Red Cell Distribution Width 16.7 % (11.5-14.5); Segmented Neutrophils % 85.3 %; White Blood Count 12.8 K/mcL (4.3-11.1)
[2019-11-28 05:51] LABS: BUN/Creatinine Ratio 38 (6-26); Blood Urea Nitrogen 38 mg/dL (8-23); Calcium 8.6 mg/dL (8.6-10.3); Carbon Dioxide 28 mEq/L (23-29); Chloride 107 mEq/L (98-107); Glucose 137 mg/dL (70-105); Magnesium 1.6 mg/dL (1.6-2.6); Osmolality,Calculated 303 (280-300); Phosphorous 2.8 mg/dL (2.7-4.5); Potassium 4.4 mEq/L (3.5-5.1); Sodium 141 mEq/L (136-145); eGFR For African Americans > 60 (> 60); eGFR For Non-African Americans 52 (> 60)
[2019-11-28] MEDS: *HR* Heparin 5,000 UNIT/ML VIAL SQ SCH ×2 (05:53→17:10)
[2019-11-28] MEDS: Budesonide/Formoterol 160/4.5 1 PUFF INH IH SCH ×3 (07:42→19:53)
[2019-11-28] MEDS: predniSONE 20 MG TABLET PO SCH (07:43)
[2019-11-28] MEDS ORDERED: *HR* Metoprolol 5 MG/5 ML VIAL IVP PRN (08:08)
[2019-11-28] MEDS ORDERED: predniSONE 20 MG TABLET PO SCH (09:00)
[2019-11-28] MEDS ORDERED: cefTRIAXone 1,000 MG in Water for inj. (sterile) 10 ML IVP SCH (09:00)
[2019-11-28] MEDS ORDERED: 0.9 % Sodium Chloride 250 ML ONE (09:34)
[2019-11-28] MEDS: Furosemide 20 MG/2 ML VIAL IVP SCH ×2 (09:50→17:10)
[2019-11-28] MEDS: hydrOXYzine pamoate 25 MG CAPSULE PO PRN (11:58)
[2019-11-28] MEDS: Azithromycin 250 MG TABLET PO SCH (17:09)
[2019-11-29 02:27] LABS: Basophils % 0.2 %; Hematocrit 26.4 % (35.3-44.9); Hemoglobin 8.6 g/dL (11.5-15.4); Immature Granulocytes % 2.5 % (0-4); Lymphocytes # 0.9 K/mcL (0.6-4.6); Lymphocytes % 5.8 %; Mean Corpuscular HGB Conc 32.6 g/dL (31.6-35.5); Mean Corpuscular Hemoglobin 29.9 pg (28.0-33.3); Mean Corpuscular Volume 91.7 fL (83.0-100.0); Mean Platelet Volume 9.5 fL (9.4-12.4); Monocytes # 2.7 K/mcL (0.0-1.3); Monocytes % 17.7 %; Neutrophils # 11.1 K/mcL (1.6-8.9); Nucleated Red Blood Cells 0.1 /100 WBC (0); Platelet Count 249 K/mcL (140-400); Red Blood Count 2.88 M/mcL (3.82-4.97); Red Cell Distribution Width 16.5 % (11.5-14.5); Segmented Neutrophils % 73.8 %; White Blood Count 15.1 K/mcL (4.3-11.1)
[2019-11-29 02:48] LABS: BUN/Creatinine Ratio 38 (6-26); Blood Urea Nitrogen 30 mg/dL (8-23); Calcium 8.6 mg/dL (8.6-10.3); Carbon Dioxide 27 mEq/L (23-29); Chloride 108 mEq/L (98-107); Glucose 114 mg/dL (70-105); Magnesium 1.6 mg/dL (1.6-2.6); Osmolality,Calculated 301 (280-300); Phosphorous 1.7 mg/dL (2.7-4.5); Potassium 3.9 mEq/L (3.5-5.1); Sodium 142 mEq/L (136-145); eGFR For African Americans > 60 (> 60); eGFR For Non-African Americans > 60 (> 60)
[2019-11-29] MEDS: Ipratropium/Albuterol Neb 3 ML IH SCH ×5 (03:57→19:57)
[2019-11-29] MEDS: Ringers Solution, Lactated 1,000 ML IVC SCH (05:01)
[2019-11-29] MEDS: *HR* Heparin 5,000 UNIT/ML VIAL SQ SCH ×2 (05:22→16:45)
[2019-11-29] MEDS: Budesonide/Formoterol 160/4.5 1 PUFF INH IH SCH ×2 (08:09→19:58)
[2019-11-29] MEDS: predniSONE 20 MG TABLET PO SCH (08:56)
[2019-11-29] MEDS: Metoprolol XL (24 HR) Succ 25 MG TAB.ER.24H PO SCH (08:57)
[2019-11-29] MEDS ORDERED: Cefdinir 300 MG CAPSULE PO SCH (09:00)
[2019-11-29] MEDS: Piperacillin/Tazobactam 3.375 GM in 0.9 % Sodium Chloride Mini Bag 100 ML IVPB SCH ×3 (09:18→23:55)
[2019-11-29 09:44] LABS: VBG HCO3 28 mEq/L (21-27); VBG PCO2 39 mmHg (41-51); VBG PH 7.47 pH Units (7.32-7.42); VBG PO2 119 mmHg (25-50)
[2019-11-29 10:27] LABS: Adenovirus Not Detected (Not Detect); Bordetella Pertussis Not Detected (Not Detect); Chlamydophila pneumoniae Not Detected (Not Detect); Coronavirus 229E Not Detected (Not Detect); Coronavirus HKU1 Not Detected (Not Detect); Coronavirus NL63 Not Detected (Not Detect); Coronavirus OC43 Not Detected (Not Detect); Human Metapneumovirus Not Detected (Not Detect); Human Rhinovirus/Enterovirus Not Detected (Not Detect); Influenza A Subtype 2009 H1 Not Detected (Not Detect); Influenza B Not Detected (Not Detect); Mycoplasma pneumoniae Not Detected (Not Detect); Parainfluenza Virus 1 Not Detected (Not Detect); Parainfluenza Virus 2 Not Detected (Not Detect); Parainfluenza Virus 3 Not Detected (Not Detect); Parainfluenza Virus 4 Not Detected (Not Detect); Respiratory Syncytial Virus Not Detected (Not Detect)
[2019-11-29] MEDS ORDERED: Isovue-370 500 ML BOTTLE IVP ONE (10:47)
[2019-11-29] MEDS: Azithromycin 250 MG TABLET PO SCH (16:44)
[2019-11-30] MEDS: Ipratropium/Albuterol Neb 3 ML IH SCH ×4 (00:04→14:16)
[2019-11-30 01:12] LABS: Basophils # 0.1 K/mcL (0.0-0.2); Basophils % 0.4 %; Hematocrit 29.3 % (35.3-44.9); Hemoglobin 9.2 g/dL (11.5-15.4); Immature Granulocytes % 3.2 % (0-4); Mean Corpuscular HGB Conc 31.4 g/dL (31.6-35.5); Mean Corpuscular Hemoglobin 29.2 pg (28.0-33.3); Mean Platelet Volume 9.4 fL (9.4-12.4); Neutrophils # 12.8 K/mcL (1.6-8.9); Nucleated Red Blood Cells 0.2 /100 WBC (0); Platelet Count 293 K/mcL (140-400); Red Blood Count 3.15 M/mcL (3.82-4.97); Red Cell Distribution Width 17.1 % (11.5-14.5); Segmented Neutrophils % 73.4 %; White Blood Count 17.4 K/mcL (4.3-11.1)
[2019-11-30 01:31] LABS: BUN/Creatinine Ratio 32 (6-26); Blood Urea Nitrogen 24 mg/dL (8-23); Calcium 9.1 mg/dL (8.6-10.3); Carbon Dioxide 30 mEq/L (23-29); Chloride 109 mEq/L (98-107); Glucose 108 mg/dL (70-105); Magnesium 1.8 mg/dL (1.6-2.6); Osmolality,Calculated 303 (280-300); Phosphorous 1.7 mg/dL (2.7-4.5); Potassium 4.1 mEq/L (3.5-5.1); Sodium 144 mEq/L (136-145); eGFR For African Americans > 60 (> 60); eGFR For Non-African Americans > 60 (> 60)
[2019-11-30] MEDS: hydrOXYzine pamoate 25 MG CAPSULE PO PRN (01:47)
[2019-11-30] MEDS: *HR* Heparin 5,000 UNIT/ML VIAL SQ SCH (05:39)
[2019-11-30] MEDS: Metoprolol XL (24 HR) Succ 25 MG TAB.ER.24H PO SCH (05:39)
[2019-11-30] MEDS: Budesonide/Formoterol 160/4.5 1 PUFF INH IH SCH ×2 (07:24→21:48)
[2019-11-30] MEDS: *HR* Enoxaparin 40 MG/0.4 ML SYRINGE SQ SCH (09:29)
[2019-11-30] MEDS: predniSONE 20 MG TABLET PO SCH ×2 (09:30→11:36)
[2019-11-30] MEDS: Piperacillin/Tazobactam 3.375 GM in 0.9 % Sodium Chloride Mini Bag 100 ML IVPB SCH ×3 (09:30→20:57)
[2019-11-30] MEDS ORDERED: Ipratropium 1 PUFF INHALER IH PRN (12:45)
[2019-11-30] MEDS ORDERED: Potassium Phosphate 44 MEQ in 0.9 % Sodium Chloride 250 ML IVPB ONE (14:35)
[2019-11-30] MEDS ORDERED: Ipratropium 1 PUFF INHALER IH SCH (16:00)
[2019-11-30] MEDS ORDERED: Ipratropium/Albuterol Neb 3 ML IH SCH (16:00)
[2019-11-30] MEDS: Tiotropium 18 MCG inhalation IH SCH (18:33)
[2019-12-01 04:00] LABS: Basophils # 0.1 K/mcL (0.0-0.2); Basophils % 0.4 %; Eosinophils % 0.1 %; Hematocrit 31.8 % (35.3-44.9); Hemoglobin 9.8 g/dL (11.5-15.4); Immature Granulocytes % 3.9 % (0-4); Lymphocytes # 1.2 K/mcL (0.6-4.6); Lymphocytes % 6.7 %; Mean Corpuscular HGB Conc 30.8 g/dL (31.6-35.5); Mean Corpuscular Hemoglobin 29.8 pg (28.0-33.3); Mean Corpuscular Volume 96.7 fL (83.0-100.0); Mean Platelet Volume 9.7 fL (9.4-12.4); Monocytes # 2.6 K/mcL (0.0-1.3); Monocytes % 13.9 %; Neutrophils # 13.8 K/mcL (1.6-8.9); Nucleated Red Blood Cells 0.5 /100 WBC (0); Platelet Count 322 K/mcL (140-400); Red Blood Count 3.29 M/mcL (3.82-4.97); Red Cell Distribution Width 17.4 % (11.5-14.5); White Blood Count 18.4 K/mcL (4.3-11.1)
[2019-12-01 04:19] LABS: BUN/Creatinine Ratio 31 (6-26); Blood Urea Nitrogen 24 mg/dL (8-23); Calcium 8.9 mg/dL (8.6-10.3); Carbon Dioxide 27 mEq/L (23-29); Chloride 112 mEq/L (98-107); Glucose 60 mg/dL (70-105); Magnesium 1.9 mg/dL (1.6-2.6); Osmolality,Calculated 312 (280-300); Phosphorous 4.6 mg/dL (2.7-4.5); Potassium 4.2 mEq/L (3.5-5.1); Sodium 150 mEq/L (136-145); eGFR For African Americans > 60 (> 60); eGFR For Non-African Americans > 60 (> 60)
[2019-12-01] MEDS: Piperacillin/Tazobactam 3.375 GM in 0.9 % Sodium Chloride Mini Bag 100 ML IVPB SCH ×3 (06:01→21:34)
[2019-12-01] MEDS ORDERED: D5% in Water 1,000 ML IVC SCH (08:15)
[2019-12-01] MEDS: *HR* Enoxaparin 40 MG/0.4 ML SYRINGE SQ SCH (09:30)
[2019-12-01] MEDS: Metoprolol XL (24 HR) Succ 25 MG TAB.ER.24H PO SCH (09:36)
[2019-12-01] MEDS: predniSONE 20 MG TABLET PO SCH (09:37)
[2019-12-01] MEDS: Budesonide/Formoterol 160/4.5 1 PUFF INH IH SCH ×2 (09:38→22:05)
[2019-12-01] MEDS: Tiotropium 18 MCG inhalation IH SCH (16:11)
[2019-12-02 00:53] LABS: Hemoglobin 9.9 g/dL (11.5-15.4); Mean Corpuscular HGB Conc 34.1 g/dL (31.6-35.5); Mean Corpuscular Hemoglobin 34.5 pg (28.0-33.3); Mean Platelet Volume 9.9 fL (9.4-12.4); Platelet Count 294 K/mcL (140-400); Red Blood Count 2.87 M/mcL (3.82-4.97)
[2019-12-02 01:12] LABS: BUN/Creatinine Ratio 33 (6-26); Blood Urea Nitrogen 27 mg/dL (8-23); Calcium 8.3 mg/dL (8.6-10.3); Carbon Dioxide 33 mEq/L (23-29); Chloride 112 mEq/L (98-107); Glucose 202 mg/dL (70-105); Osmolality,Calculated 317 (280-300); Potassium 3.9 mEq/L (3.5-5.1); Sodium 148 mEq/L (136-145); eGFR For African Americans > 60 (> 60); eGFR For Non-African Americans > 60 (> 60)
[2019-12-02 02:58] LABS: Bilirubin,Urine Negative (Negative); Blood,Urine Negative (Negative); Clarity,Urine Clear (Clear); Color,Urine Yellow (Yellow); Glucose,Urine (UA) 250 mg/dL (Normal); Ketones,Urine Negative (Negative); Leukocyte Esterase,Urine Negative (Negative); Nitrite,Urine Negative (Negative); Protein,Urine 30 mg/dL (Neg-Trace); Urobilinogen,Urine Normal (Normal)
[2019-12-02 03:01] LABS: Bacteria,Urine None Seen per hpf (None-Few); Hyaline Casts,Urine None Seen per lpf (None-Few); Squamous Epithelial Cell,Urine Moderate per lpf (None-Few); WBC,Urine 0-3 per hpf (0-3)
[2019-12-02] MEDS: Piperacillin/Tazobactam 3.375 GM in 0.9 % Sodium Chloride Mini Bag 100 ML IVPB SCH ×3 (05:33→21:42)
[2019-12-02] MEDS ORDERED: D5% in Water 1,000 ML IVC SCH (08:00)
[2019-12-02] MEDS: Budesonide/Formoterol 160/4.5 1 PUFF INH IH SCH ×2 (08:36→22:24)
[2019-12-02] MEDS: *HR* Enoxaparin 40 MG/0.4 ML SYRINGE SQ SCH (08:41)
[2019-12-02] MEDS: predniSONE 20 MG TABLET PO SCH (08:43)
[2019-12-02] MEDS: Metoprolol XL (24 HR) Succ 25 MG TAB.ER.24H PO SCH (08:43)
[2019-12-02] MEDS: Tiotropium 18 MCG inhalation IH SCH (16:23)
[2019-12-02] MEDS: hydrOXYzine pamoate 25 MG CAPSULE PO PRN (17:58)
[2019-12-03 05:26] LABS: Hematocrit 28.9 % (35.3-44.9); Hemoglobin 8.6 g/dL (11.5-15.4); Mean Corpuscular HGB Conc 29.8 g/dL (31.6-35.5); Mean Corpuscular Hemoglobin 29.9 pg (28.0-33.3); Mean Corpuscular Volume 100.3 fL (83.0-100.0); Mean Platelet Volume 9.8 fL (9.4-12.4); Platelet Count 303 K/mcL (140-400); Red Blood Count 2.88 M/mcL (3.82-4.97); Red Cell Distribution Width 18.3 % (11.5-14.5); White Blood Count 19.9 K/mcL (4.3-11.1)
[2019-12-03 05:46] LABS: BUN/Creatinine Ratio 36 (6-26); Blood Urea Nitrogen 26 mg/dL (8-23); Calcium 8.7 mg/dL (8.6-10.3); Carbon Dioxide 34 mEq/L (23-29); Chloride 109 mEq/L (98-107); Glucose 141 mg/dL (70-105); Magnesium 1.9 mg/dL (1.6-2.6); Osmolality,Calculated 309 (280-300); Sodium 146 mEq/L (136-145); eGFR For African Americans > 60 (> 60); eGFR For Non-African Americans > 60 (> 60)
[2019-12-03] MEDS: Piperacillin/Tazobactam 3.375 GM in 0.9 % Sodium Chloride Mini Bag 100 ML IVPB SCH ×3 (06:45→20:16)
[2019-12-03] MEDS: predniSONE 20 MG TABLET PO SCH (07:55)
[2019-12-03] MEDS: Metoprolol XL (24 HR) Succ 25 MG TAB.ER.24H PO SCH (07:56)
[2019-12-03] MEDS: *HR* Enoxaparin 40 MG/0.4 ML SYRINGE SQ SCH (07:57)
[2019-12-03] MEDS: Budesonide/Formoterol 160/4.5 1 PUFF INH IH SCH ×2 (10:56→22:02)
[2019-12-03] MEDS: Tiotropium 18 MCG inhalation IH SCH (15:38)
[2019-12-03] MEDS: Melatonin 3 MG TABLET PO SCH (20:17)
[2019-12-04 03:37] LABS: Hemoglobin 8.2 g/dL (11.5-15.4); Mean Corpuscular HGB Conc 29.3 g/dL (31.6-35.5); Mean Corpuscular Hemoglobin 30.4 pg (28.0-33.3); Mean Corpuscular Volume 103.7 fL (83.0-100.0); Mean Platelet Volume 9.9 fL (9.4-12.4); Platelet Count 280 K/mcL (140-400); Red Cell Distribution Width 18.8 % (11.5-14.5); White Blood Count 17.3 K/mcL (4.3-11.1)
[2019-12-04 03:45] LABS: VBG HCO3 37 mEq/L (21-27); VBG PCO2 85 mmHg (41-51); VBG PH 7.24 pH Units (7.32-7.42); VBG PO2 55 mmHg (25-50)
[2019-12-04 03:57] LABS: BUN/Creatinine Ratio 35 (6-26); Blood Urea Nitrogen 24 mg/dL (8-23); Calcium 8.8 mg/dL (8.6-10.3); Carbon Dioxide 35 mEq/L (23-29); Chloride 110 mEq/L (98-107); Glucose 111 mg/dL (70-105); Osmolality,Calculated 311 (280-300); Sodium 148 mEq/L (136-145); eGFR For African Americans > 60 (> 60); eGFR For Non-African Americans > 60 (> 60)
[2019-12-04] MEDS ORDERED: *HR* LORazepam 2 MG/ML VIAL IVP STA (04:49)
[2019-12-04] MEDS: Piperacillin/Tazobactam 3.375 GM in 0.9 % Sodium Chloride Mini Bag 100 ML IVPB SCH ×3 (05:07→21:36)
[2019-12-04] MEDS: Metoprolol XL (24 HR) Succ 25 MG TAB.ER.24H PO SCH (08:09)
[2019-12-04] MEDS: *HR* Enoxaparin 40 MG/0.4 ML SYRINGE SQ SCH (08:09)
[2019-12-04] MEDS: Budesonide/Formoterol 160/4.5 1 PUFF INH IH SCH ×2 (10:12→22:18)
[2019-12-04] MEDS ORDERED: D5% in Water 500 ML IVC SCH (12:15)
[2019-12-04] MEDS: Tiotropium 18 MCG inhalation IH SCH (15:45)
[2019-12-04] MEDS: MethylPREDNISolone 40 MG/ML VIAL IVP SCH (19:47)
[2019-12-04 20:16] LABS: ABG Base Excess 9 mEq/L (-2 to 3); ABG HCO3 37 mEq/L (21-27); ABG Oxygen Saturation 96 % (95-98); ABG PCO2 70 mmHg (35-45); ABG PH 7.33 pH Units (7.32-7.45); ABG PO2 93 mmHg (85-104); ABG TCO2 39 mEq/L (20-26); Blood Gas Pressure Support 12 cm H2O
[2019-12-04] MEDS: Melatonin 3 MG TABLET PO SCH (21:37)
[2019-12-05 03:50] LABS: VBG HCO3 36 mEq/L (21-27); VBG PCO2 67 mmHg (41-51); VBG PH 7.34 pH Units (7.32-7.42); VBG PO2 46 mmHg (25-50)
[2019-12-05 03:51] LABS: Hematocrit 30.5 % (35.3-44.9); Mean Corpuscular HGB Conc 29.5 g/dL (31.6-35.5); Mean Corpuscular Hemoglobin 30.4 pg (28.0-33.3); Mean Platelet Volume 9.9 fL (9.4-12.4); Platelet Count 313 K/mcL (140-400); Red Blood Count 2.96 M/mcL (3.82-4.97); Red Cell Distribution Width 19.1 % (11.5-14.5); White Blood Count 12.8 K/mcL (4.3-11.1)
[2019-12-05 04:08] LABS: BUN/Creatinine Ratio 31 (6-26); Blood Urea Nitrogen 20 mg/dL (8-23); Calcium 9.5 mg/dL (8.6-10.3); Carbon Dioxide 36 mEq/L (23-29); Chloride 108 mEq/L (98-107); Glucose 115 mg/dL (70-105); Osmolality,Calculated 312 (280-300); Potassium 3.9 mEq/L (3.5-5.1); Sodium 149 mEq/L (136-145); eGFR For African Americans > 60 (> 60); eGFR For Non-African Americans > 60 (> 60)
[2019-12-05] MEDS: Piperacillin/Tazobactam 3.375 GM in 0.9 % Sodium Chloride Mini Bag 100 ML IVPB SCH (05:15)
[2019-12-05] MEDS: MethylPREDNISolone 40 MG/ML VIAL IVP SCH (05:17)
[2019-12-05] MEDS: Metoprolol XL (24 HR) Succ 25 MG TAB.ER.24H PO SCH (07:51)
[2019-12-05] MEDS: *HR* Enoxaparin 40 MG/0.4 ML SYRINGE SQ SCH (07:52)
[2019-12-05] MEDS ORDERED: D5% in Water 500 ML ONE (10:27)
[2019-12-05 10:49] VITALS: BP 131/76
[2019-12-05] MEDS: Budesonide/Formoterol 160/4.5 1 PUFF INH IH SCH (11:08)
== END 2019-12-05 15:40 | DRG 853 ==
LOC: 3NENU → SUATTDRO 23:52 → 2NENU 11-26 10:09 → 3NENU 11-27 14:49 → 2NNU 11-30 10:00 → 3NENU 12-02 13:05
PROVIDERS: ADMIT Student in an Organized Health Care Education/Training Program; ATTEND Internal Medicine

== ENCOUNTER 2019-12-05 20:21 | Inpatient (IN) ==
[2019-12-05] MEDS ORDERED: Ondansetron 4 MG/2 ML VIAL IVP PRN (23:01)
[2019-12-05] MEDS ORDERED: Naloxone 0.4 MG/ML INJ IVP PRN (23:01)
[2019-12-05] MEDS: Ipratropium/Albuterol Neb 3 ML IH SCH (23:31)
[2019-12-06 00:37] LABS: Basophils % 0.3 %; Nucleated Red Blood Cells 0.2 /100 WBC (0); Red Cell Distribution Width 19.4 % (11.5-14.5)
[2019-12-06 00:39] LABS: Basophils # 0.1 K/mcL (0.0-0.2); Hematocrit 31.2 % (35.3-44.9); Immature Granulocytes % 2.5 % (0-4); Lymphocytes # 0.8 K/mcL (0.6-4.6); Lymphocytes % 4.3 %; Mean Corpuscular HGB Conc 28.8 g/dL (31.6-35.5); Mean Corpuscular Hemoglobin 30.6 pg (28.0-33.3); Mean Corpuscular Volume 106.1 fL (83.0-100.0); Mean Platelet Volume 10.1 fL (9.4-12.4); Platelet Count 274 K/mcL (140-400); Red Blood Count 2.94 M/mcL (3.82-4.97); Segmented Neutrophils % 82.9 %; White Blood Count 19.6 K/mcL (4.3-11.1)
[2019-12-06 00:40] LABS: Neutrophils # 16.3 K/mcL (1.6-8.9)
[2019-12-06] MEDS ORDERED: Furosemide 40 MG/4 ML VIAL IVP ONE (00:50)
[2019-12-06] MEDS: Piperacillin/Tazobactam 3.375 GM in 0.9 % Sodium Chloride Mini Bag 100 ML IVPB SCH ×3 (00:53→16:08)
[2019-12-06 00:56] LABS: Hypochromasia Present (Not Present); Platelet Estimate Normal (Normal); Polychromasia 1+ (Not Present)
[2019-12-06 00:57] LABS: BUN/Creatinine Ratio 30 (6-26); Blood Urea Nitrogen 25 mg/dL (8-23); Calcium 9.3 mg/dL (8.6-10.3); Carbon Dioxide 31 mEq/L (23-29); Chloride 109 mEq/L (98-107); Glucose 121 mg/dL (70-105); Magnesium 2.3 mg/dL (1.6-2.6); Osmolality,Calculated 314 (280-300); Sodium 149 mEq/L (136-145); eGFR For African Americans > 60 (> 60); eGFR For Non-African Americans > 60 (> 60)
[2019-12-06] MEDS: methylPREDNISolone 125 MG/2 ML VIAL IVP SCH ×4 (01:22→17:22)
[2019-12-06] MEDS ORDERED: Naloxone 0.4 MG/ML INJ IVP PRN (03:17)
[2019-12-06] MEDS: Ipratropium/Albuterol Neb 3 ML IH SCH ×6 (03:25→23:33)
[2019-12-06 04:14] LABS: ABG Base Excess 11 mEq/L (-2 to 3); ABG HCO3 38 mEq/L (21-27); ABG Oxygen Saturation 94 % (95-98); ABG PCO2 59 mmHg (35-45); ABG PH 7.41 pH Units (7.32-7.45); ABG PO2 73 mmHg (85-104); ABG TCO2 39 mEq/L (20-26)
[2019-12-06] MEDS: *HR* LORazepam 2 MG/ML VIAL IVP PRN (05:11)
[2019-12-06] MEDS ORDERED: *HR* Heparin 5,000 UNIT/ML VIAL SQ SCH (06:00)
[2019-12-06] MEDS: *HR* Enoxaparin 40 MG/0.4 ML SYRINGE SQ SCH (06:54)
[2019-12-06] MEDS ORDERED: Aminoglycoside Consult 1 EACH MC ONE (08:03)
[2019-12-06] MEDS ORDERED: Furosemide 40 MG/4 ML VIAL IVP SCH (09:00)
[2019-12-06] MEDS ORDERED: Acetaminophen 325 MG TABLET PO PRN (11:38)
[2019-12-06] MEDS ORDERED: hydrOXYzine pamoate 25 MG CAPSULE PO PRN (11:38)
[2019-12-07] MEDS: methylPREDNISolone 125 MG/2 ML VIAL IVP SCH ×2 (01:35→06:43)
[2019-12-07] MEDS: Piperacillin/Tazobactam 3.375 GM in 0.9 % Sodium Chloride Mini Bag 100 ML IVPB SCH (01:37)
[2019-12-07 01:38] LABS: Basophils % 0.3 %; Hematocrit 29.6 % (35.3-44.9); Hemoglobin 8.8 g/dL (11.5-15.4); Immature Granulocytes % 1.3 % (0-4); Lymphocytes # 0.3 K/mcL (0.6-4.6); Mean Corpuscular HGB Conc 29.7 g/dL (31.6-35.5); Mean Corpuscular Hemoglobin 30.8 pg (28.0-33.3); Mean Corpuscular Volume 103.5 fL (83.0-100.0); Mean Platelet Volume 10.4 fL (9.4-12.4); Monocytes # 0.7 K/mcL (0.0-1.3); Monocytes % 4.5 %; Neutrophils # 13.5 K/mcL (1.6-8.9); Nucleated Red Blood Cells 0.1 /100 WBC (0); Platelet Count 268 K/mcL (140-400); Red Blood Count 2.86 M/mcL (3.82-4.97); Red Cell Distribution Width 19.7 % (11.5-14.5); Segmented Neutrophils % 91.9 %; White Blood Count 14.7 K/mcL (4.3-11.1)
[2019-12-07 01:56] LABS: BUN/Creatinine Ratio 30 (6-26); Blood Urea Nitrogen 29 mg/dL (8-23); Carbon Dioxide 39 mEq/L (23-29); Chloride 105 mEq/L (98-107); Glucose 141 mg/dL (70-105); Osmolality,Calculated 328 (280-300); Potassium 3.5 mEq/L (3.5-5.1); Sodium 155 mEq/L (136-145); eGFR For African Americans > 60 (> 60); eGFR For Non-African Americans 55 (> 60)
[2019-12-07] MEDS: Ipratropium/Albuterol Neb 3 ML IH SCH ×2 (03:40→07:57)
[2019-12-07] MEDS: *HR* LORazepam 2 MG/ML VIAL IVP PRN (05:37)
[2019-12-07] MEDS: *HR* Enoxaparin 40 MG/0.4 ML SYRINGE SQ SCH (06:43)
[2019-12-07 07:46] VITALS: BP 119/69
[2019-12-07] MEDS ORDERED: D5% in Water 1,000 ML IVC SCH (08:00)
[2019-12-07] MEDS ORDERED: Metoprolol XL (24 HR) Succ 25 MG TAB.ER.24H PO SCH (09:00)
== END 2019-12-07 08:04 | disposition expired | DRG 871 ==
LOC: 2ANU → SUATTDRO 12-06 03:30
PROVIDERS: ADMIT Student in an Organized Health Care Education/Training Program; ATTEND Internal Medicine